=== PATIENT | male | born 1950 | race Caucasian/White ===

== ENCOUNTER 2019-03-28 07:31 | Day surgery (SDC) | payer MEDICARE, BC ==
[~2019-03-28] VITALS: Ht 175.3 cm; Wt 80.8 kg
[2019-03-28] VITALS (11 sets, daily range): BP systolic 99–116; BP diastolic 61–71
[~2019-03-28 07:31] MED LIST: BOSE125T PO; CHOL10002 PO; COU5T PO; EPIN0.1516 IM; O2; OMEG1CAP2 PO; SILD20TA PO; SPIR25TA5 PO
[2019-03-28] MEDS ORDERED: normal saline 1000ml 1,000 ML IV PRN (07:55)
[2019-03-28] MEDS ORDERED: albumin 25% 100mL bottle x 1 IV PRN (07:55)
== END 2019-03-28 11:15 | disposition home or self-care (01) ==
LOC: SSTAY O 07:31
PROVIDERS: ATTEND Radiology Vascular & Interventional Radiology
DX: R18.8 Other ascites (principal); I10 Essential (primary) hypertension; I27.20 Pulmonary hypertension, unspecified; I42.0 Dilated cardiomyopathy; Z98.890 Other specified postprocedural states; Z88.8 Allergy status to other drugs, medicaments and biological substances; Z79.899 Other long term (current) drug therapy
CPT/HCPCS: 36415; 49083; 85610; C1729; J7030

== ENCOUNTER 2019-04-11 06:32 | Day surgery (SDC) | payer MEDICARE, BC ==
[~2019-04-11] VITALS: Ht 175.3 cm; Wt 78.0 kg
[2019-04-11] MEDS ORDERED: normal saline 1000ml 1,000 ML IV PRN (07:05)
[2019-04-11] MEDS ORDERED: albumin 25% 100mL bottle x 1 IV PRN (07:05)
[2019-04-11 07:40] VITALS: BP 109/65
[2019-04-11 08:20] VITALS: BP 110/68
[2019-04-11 08:33] VITALS: BP 98/69
[2019-04-11 08:45] VITALS: BP 91/60
[2019-04-11 09:00] VITALS: BP 96/58
[2019-04-11 09:15] VITALS: BP 94/61
== END 2019-04-11 09:30 | disposition home or self-care (01) ==
LOC: SSTAY O 06:32
PROVIDERS: ATTEND Radiology Diagnostic Radiology
DX: R18.8 Other ascites (principal); I10 Essential (primary) hypertension; I42.0 Dilated cardiomyopathy; I27.20 Pulmonary hypertension, unspecified; Z98.890 Other specified postprocedural states; Z79.899 Other long term (current) drug therapy
CPT/HCPCS: 36415; 49083; 85610; C1729; J7030; P9047

== ENCOUNTER 2019-04-27 07:01 | Day surgery (SDC) | payer MEDICARE, BC ==
[~2019-04-27] VITALS: Ht 175.3 cm; Wt 74.1 kg
[2019-04-27] MEDS ORDERED: albumin 25% 100mL bottle x 1 IV PRN (07:25)
[2019-04-27] MEDS ORDERED: normal saline 1000ml 1,000 ML IV PRN (07:25)
[2019-04-27 08:00] VITALS: BP_SYST 91; BP_SYST 93; BP_DIAS 56; BP_DIAS 58
[2019-04-27 08:15] VITALS: BP 91/56
[2019-04-27 08:45] VITALS: BP 99/56
== END 2019-04-27 09:54 | disposition home or self-care (01) ==
LOC: SSTAY O 07:01
PROVIDERS: ATTEND Radiology Vascular & Interventional Radiology
DX: R18.8 Other ascites (principal); I27.20 Pulmonary hypertension, unspecified; N40.0 Benign prostatic hyperplasia without lower urinary tract symptoms; I10 Essential (primary) hypertension; Z98.890 Other specified postprocedural states; Z88.1 Allergy status to other antibiotic agents; Z91.030 Bee allergy status; Z79.899 Other long term (current) drug therapy; Z79.01 Long term (current) use of anticoagulants; Z82.49 Family history of ischemic heart disease and other diseases of the circulatory system
CPT/HCPCS: 49083; C1729; J7030; P9047

== ENCOUNTER 2019-05-09 06:01 | Day surgery (SDC) | payer MEDICARE, BC ==
[2019-05-09] VITALS (7 sets, daily range): BP systolic 88–100; BP diastolic 50–64
[~2019-05-09] VITALS: Ht 175.3 cm; Wt 72.3 kg
[2019-05-09] MEDS ORDERED: normal saline 1000ml 1,000 ML IV PRN (06:25)
[2019-05-09] MEDS ORDERED: albumin 25% 100mL bottle x 1 IV PRN (06:25)
[2019-05-09] MEDS ORDERED: CECLOR (06:30)
[2019-05-09] MEDS ORDERED: FURO-150 PO (06:30)
== END 2019-05-09 08:45 | disposition home or self-care (01) ==
LOC: SSTAY O 06:01
PROVIDERS: ATTEND Radiology Diagnostic Radiology
DX: R18.8 Other ascites (principal); N40.0 Benign prostatic hyperplasia without lower urinary tract symptoms; I10 Essential (primary) hypertension; Z98.890 Other specified postprocedural states; I27.20 Pulmonary hypertension, unspecified; Z79.01 Long term (current) use of anticoagulants; Z79.899 Other long term (current) drug therapy; Z88.1 Allergy status to other antibiotic agents; Z91.030 Bee allergy status; Z82.49 Family history of ischemic heart disease and other diseases of the circulatory system
CPT/HCPCS: 36415; 49083; 85610; C1729; J7030; P9047

== ENCOUNTER 2019-05-23 07:12 | Day surgery (SDC) | payer MEDICARE, BC ==
[~2019-05-23] VITALS: Ht 175.3 cm; Wt 69.5 kg
[2019-05-23] VITALS (7 sets, daily range): BP systolic 92–97; BP diastolic 53–57
[~2019-05-23 07:12] MED LIST changes: +CECLOR; +FURO-150 PO
[2019-05-23] MEDS ORDERED: albumin 25% 100mL bottle x 1 IV PRN (07:30)
[2019-05-23] MEDS ORDERED: normal saline 1000ml 1,000 ML IV PRN (07:30)
== END 2019-05-23 10:30 | disposition home or self-care (01) ==
LOC: SSTAY O 07:12
PROVIDERS: ATTEND Radiology Vascular & Interventional Radiology
DX: R18.8 Other ascites (principal); I42.0 Dilated cardiomyopathy; I27.20 Pulmonary hypertension, unspecified; Z79.899 Other long term (current) drug therapy
CPT/HCPCS: 49083; C1729; J7030; P9047

== ENCOUNTER 2019-06-06 08:02 | Day surgery (SDC) | payer MEDICARE, BC ==
[~2019-06-06] VITALS: Ht 175.3 cm; Wt 68.7 kg
[2019-06-06] VITALS (7 sets, daily range): BP systolic 88–98; BP diastolic 55–61
[~2019-06-06 08:02] MED LIST changes: -CECLOR
[2019-06-06] MEDS ORDERED: albumin 25% 100mL bottle x 1 IV PRN (08:25)
[2019-06-06] MEDS ORDERED: normal saline 1000ml 1,000 ML IV PRN (08:55)
== END 2019-06-06 11:15 | disposition home or self-care (01) ==
LOC: SSTAY O 08:02
PROVIDERS: ATTEND Radiology Vascular & Interventional Radiology
DX: R18.8 Other ascites (principal); I27.20 Pulmonary hypertension, unspecified; I42.8 Other cardiomyopathies; N40.0 Benign prostatic hyperplasia without lower urinary tract symptoms; I10 Essential (primary) hypertension; Z98.890 Other specified postprocedural states; Z88.1 Allergy status to other antibiotic agents; Z91.030 Bee allergy status; Z79.899 Other long term (current) drug therapy; Z79.01 Long term (current) use of anticoagulants; Z82.49 Family history of ischemic heart disease and other diseases of the circulatory system
CPT/HCPCS: 36415; 49083; 85610; C1729; J7030; P9047

== ENCOUNTER 2019-06-21 08:07 | Day surgery (SDC) | payer MEDICARE, BC ==
[2019-06-21] VITALS (8 sets, daily range): BP systolic 97–107; BP diastolic 61–73
[~2019-06-21] VITALS: Ht 170.2 cm; Wt 66.5 kg
[2019-06-21] MEDS ORDERED: normal saline 1000ml 1,000 ML IV PRN (08:30)
[2019-06-21] MEDS ORDERED: albumin (human) 25% 100ml IV 100 ML IV ONE (11:09)
== END 2019-06-21 11:40 | disposition home or self-care (01) ==
LOC: SSTAY O 08:07
PROVIDERS: ATTEND Radiology Diagnostic Radiology
DX: R18.8 Other ascites (principal); I27.20 Pulmonary hypertension, unspecified; I42.0 Dilated cardiomyopathy; I48.91 Unspecified atrial fibrillation; N40.0 Benign prostatic hyperplasia without lower urinary tract symptoms; I10 Essential (primary) hypertension; Z79.01 Long term (current) use of anticoagulants; Z98.890 Other specified postprocedural states; Z91.030 Bee allergy status; Z88.1 Allergy status to other antibiotic agents; Z79.899 Other long term (current) drug therapy; Z82.49 Family history of ischemic heart disease and other diseases of the circulatory system
CPT/HCPCS: 36415; 49083; 85610; C1729; J7030; P9047

== ENCOUNTER 2019-07-11 06:59 | Day surgery (SDC) | payer MEDICARE, BC ==
[~2019-07-11] VITALS: Ht 170.2 cm; Wt 65.7 kg
[2019-07-11] VITALS (8 sets, daily range): BP systolic 96–115; BP diastolic 63–75
[2019-07-11] MEDS ORDERED: normal saline 1000ml 1,000 ML IV PRN (07:20)
[2019-07-11] MEDS ORDERED: albumin 25% 100mL bottle x 1 IV PRN (07:20)
[2019-07-11] MEDS ORDERED: gelatin sponge, absorbable (Gelfoam 12-7MM) sponge TP ONE (09:05)
== END 2019-07-11 14:15 | disposition home or self-care (01) ==
LOC: SSTAY O 06:59
PROVIDERS: ATTEND Radiology Vascular & Interventional Radiology
DX: R18.8 Other ascites (principal); I27.20 Pulmonary hypertension, unspecified; I48.91 Unspecified atrial fibrillation; I10 Essential (primary) hypertension; N40.0 Benign prostatic hyperplasia without lower urinary tract symptoms; Z98.890 Other specified postprocedural states; Z79.899 Other long term (current) drug therapy; Z79.01 Long term (current) use of anticoagulants; Z88.1 Allergy status to other antibiotic agents; Z91.030 Bee allergy status
CPT/HCPCS: 36415; 49083; 85610; C1729; J7030; P9047

== ENCOUNTER 2019-07-31 07:02 | Day surgery (SDC) | payer MEDICARE, BC ==
[~2019-07-31] VITALS: Ht 170.2 cm; Wt 63.7 kg
[~2019-07-31 07:02] MED LIST changes: -BOSE125T PO
[2019-07-31 07:18] VITALS: BP 92/53
[2019-07-31] MEDS ORDERED: normal saline 1000ml 1,000 ML IV PRN (07:25)
[2019-07-31] MEDS ORDERED: albumin 25% 100mL bottle x 1 IV PRN (07:25)
[2019-07-31 08:55] VITALS: BP 103/62
[2019-07-31 09:10] VITALS: BP 93/56
[2019-07-31 09:25] VITALS: BP 109/50
[2019-07-31 09:30] VITALS: BP 109/52
[2019-07-31 09:45] VITALS: BP 103/52
== END 2019-07-31 09:45 | disposition home or self-care (01) ==
LOC: SSTAY O 07:02
PROVIDERS: ATTEND Radiology Vascular & Interventional Radiology
DX: R18.8 Other ascites (principal); I48.91 Unspecified atrial fibrillation; I27.9 Pulmonary heart disease, unspecified; N40.0 Benign prostatic hyperplasia without lower urinary tract symptoms; I10 Essential (primary) hypertension; Z98.890 Other specified postprocedural states; Z79.01 Long term (current) use of anticoagulants; Z91.030 Bee allergy status; Z88.1 Allergy status to other antibiotic agents; Z79.899 Other long term (current) drug therapy; Z82.49 Family history of ischemic heart disease and other diseases of the circulatory system
CPT/HCPCS: 36415; 49083; 85610; C1729; J7030

== ENCOUNTER 2019-08-13 10:09 | Inpatient (IN) | payer MEDICARE, BC ==
[2019-08-13] VITALS (7 sets, daily range): BP systolic 103–114; BP diastolic 63–69
[~2019-08-13] VITALS: Ht 170.2 cm; Wt 62.3 kg
--- NOTE | 2019-08-13 10:15 | NUR ---
In house and paged for level 1 stroke. Onset 0900 this morning. Spouse states last known well was moments before. Speech became so slurred spouse stated I could hardly understand him. She also noted a right facial droop. Pt experienced generalized weakness, though no one sided weakness. No difficulty with thought comprehension. Currently pt exhibits severe dysarthria which waxes and wanes. Noticeable right facial droop and pts tongue deviates toward the right. Sensation is intact, aphasia is mild. 1029 sound check completed with SOC 1045 2nd page to SOC 1055 SOC logged on and tele neuro exam completed at 1105. 1105 pt ineligible for TPA as INR is 2.1. Pt has been off his Wafarin since last Wed. with pending paracentesis, which he under goes twich per month here on outpatient basis.
--- NOTE | 2019-08-13 10:20 | NUR ---
Stroke nurseJoan, at bedside to assess pt.
--- NOTE | 2019-08-13 10:36 | NUR ---
Pt returned from CT with ANABELLA Londono. Joan Stroke RN at bedside.
[2019-08-13 10:50] LABS: BASOPHILS # (AUTO) 0.1 X10'3 (0-0.2); BASOPHILS % (AUTO) 1.3 % (0-1); EOSINOPHILS # (AUTO) 0.1 X10'3 (0-0.9); EOSINOPHILS % (AUTO) 1.9 % (0-6); HEMATOCRIT 42.4 % (42.0-52.0); HEMOGLOBIN 13.5 g/dl (14.0-17.9); LYMPHOCYTES # (AUTO) 1.6 X10'3 (1.1-4.8); LYMPHOCYTES % (AUTO) 20.6 % (21-51); MEAN CORPUSCULAR HEMOGLOBIN 26.4 PG (27.0-31.0); MEAN CORPUSCULAR VOLUME 82.6 FL (78-98); MEAN PLATELET VOLUME 6.8 FL (7.4-10.4); MONOCYTES # (AUTO) 0.6 X10'3 (0-0.9); MONOCYTES % (AUTO) 7.2 % (2-12); NEUTROPHILS # (AUTO) 5.3 X10'3 (1.8-7.7); PLATELET COUNT 249 X10'3 (140-440); RED BLOOD COUNT 5.13 X10'6 (4.70-6.10); RED CELL DISTRIBUTION WIDTH 18.3 % (11.5-14.5); WHITE BLOOD COUNT 7.7 X10'3 (4.5-11.0)
[2019-08-13 11:01] LABS: PARTIAL THROMBOPLASTIN TIME 32 SECONDS (22-32)
[2019-08-13 11:03] LABS: ALANINE AMINOTRANSFERASE 9 U/L (12-78); ALBUMIN 2.8 G/DL (3.4-5.0); ALBUMIN/GLOBULIN RATIO 0.8 (1.1-1.5); ALKALINE PHOSPHATASE 173 IU/L (46-116); ANION GAP 9 (8-16); ASPARTATE AMINO TRANSFERASE 22 U/L (10-37); BLOOD UREA NITROGEN 18 MG/DL (7-18); BUN/CREATININE RATIO 17.6 (5.4-32.0); CALCIUM 8.4 MG/DL (8.5-10.1); CHLORIDE 101 MMOL/L (99-107); CREATININE 1.02 MG/DL (0.60-1.10); GLUCOSE 102 MG/DL (70-104); POTASSIUM 3.8 MMOL/L (3.5-5.1); SODIUM 138 MMOL/L (135-145); TOTAL CARBON DIOXIDE 28.1 MMOL/L (24-32); TOTAL PROTEIN 6.2 G/DL (6.4-8.2); eGFR 73 ML/MIN
[2019-08-13] MEDS ORDERED: aspirin 325mg tablet PO ONE (11:15)
--- NOTE | 2019-08-13 11:20 | NUR ---
ANABELLA Franco remains at bedside and consulting with neuro tele. Family at bedside. TPA cannot be started due to INR results.
[2019-08-13] MEDS ORDERED: iohexol 350MG/ML 100ml bottle IV ONE ×2 (11:31→12:10)
--- NOTE | 2019-08-13 11:42 | NUR ---
Pt to CT for CTA
--- NOTE | 2019-08-13 12:04 | NUR ---
back from ct and xray
[2019-08-13] MEDS ORDERED: normal saline 1000ml 1,000 ML IV ONE (12:05)
--- NOTE | 2019-08-13 12:41 | NUR ---
Pt to CT
[2019-08-13] MEDS ORDERED: heparin 25,000 UNIT/250ml bag 250 ML IV SCH (12:58)
[2019-08-13 13:11] LABS: ABG BASE EXCESS -1.6 mmol/L (-2.0-3.0); ABG HCO3 22.5 mmol/L (22.0-26.0); ABG OXYGEN SATURATION 81.6 % (95-98); ABG PCO2 (T) 36.3 mmHg (35.0-45.0); ABG PO2 (T) 47.7 mmHg (83-108); ALLEN'S TEST Positive; FCOHb 1.2 % (0.5-1.5); FLOW 5 L/min; FMetHb 0.2 % (0.3-1.12); FO2Hb 80.5 % (94-100); TOTAL HEMOGLOBIN 13.8 G/dl (14.0-17.9)
--- NOTE | 2019-08-13 13:46 | NUR ---
echo being done
--- NOTE | 2019-08-13 13:47 | NUR ---
1115 per erin hong stroke nurse. stroke protocol on hold for now. but gely available if needed.
[2019-08-13] MEDS ORDERED: FURO-150 PO (14:09)
[2019-08-13] MEDS ORDERED: acetaminophen 325mg tablet PO PRN ×2 (14:10)
[2019-08-13] MEDS ORDERED: acetaminophen 650mg rectal suppository RC PRN (14:10)
[2019-08-13] MEDS ORDERED: potassium Cl 20 mEq SR tablet PO PRN ×2 (14:10)
[2019-08-13] MEDS ORDERED: normal saline 1000ml 1,000 ML IV SCH (14:10)
[2019-08-13] MEDS ORDERED: morphine 2 MG/ML inj. syringe IV PRN (14:10)
[2019-08-13] MEDS ORDERED: ondansetron/PF 4mg/2ml inj IV PRN (14:10)
[2019-08-13] MEDS ORDERED: albuterol 2.5 MG/3 ML nebule NEB PRN (14:10)
[2019-08-13] MEDS: K, MAG and/or Phos replacement - Verify level? MC SCH (14:10)
--- NOTE | 2019-08-13 15:58 | NUR ---
Patient in room CICU 2009. I have received report from ANABELLA Londono and had the opportunity to ask questions and assume patient care.
[2019-08-13] MEDS: ipratropium/albuterol 3ml nebule NEB SCH ×3 (16:17→23:47)
--- NOTE | 2019-08-13 18:15 | NUR ---
Patient in room CICU 2009. I have received report from Vin KYLE and had the opportunity to ask questions and assume patient care. Patient resting tin bed on 8LNC with spo2 at 87%, per provider orders keep spo2 greater than 86%, no signs or symptoms of distress, no complaints of pain. Call light within reach. Will continue to monitor.
--- NOTE | 2019-08-13 18:25 | NUR ---
[facility] I have received report from Vin KYLE and had the opportunity to ask questions and assume patient care. Patient was on room air and saturating at 98%. Vital signs were stable. Levophed drip infusing through central line per MD orders, refer to IV spreadsheet for titration. Patient calm and playing games on cell phone. Addendum: 08/14/19 at 0438 by Hilary EARLY disregard above note. Entered in on wrong patient
--- NOTE | 2019-08-13 20:35 | NUR ---
Spoke with Rafaela May NP regarding patients order for Phillips, patient requests no Phillips catheter at this time and is voiding in urinal without issue. Per Lalo ok to not place Phillips at this time.
[2019-08-13] MEDS: sildenafil citrate 20mg tablet PO SCH (20:44)
[2019-08-13] MEDS: famotidine 20mg tablet PO SCH (20:44)
[2019-08-13] MEDS: warfarin 5mg tablet PO SCH (20:44)
[2019-08-14] VITALS (22 sets, daily range): BP systolic 98–141; BP diastolic 55–82
[2019-08-14] MEDS: ipratropium/albuterol 3ml nebule NEB SCH ×6 (03:30→22:49)
[2019-08-14 05:17] LABS: BASOPHILS # (AUTO) 0.1 X10'3 (0-0.2); BASOPHILS % (AUTO) 1.3 % (0-1); EOSINOPHILS # (AUTO) 0.2 X10'3 (0-0.9); EOSINOPHILS % (AUTO) 1.9 % (0-6); HEMATOCRIT 40.6 % (42.0-52.0); LYMPHOCYTES # (AUTO) 1.6 X10'3 (1.1-4.8); LYMPHOCYTES % (AUTO) 18.8 % (21-51); MEAN CORPUSCULAR HEMOGLOBIN 26.4 PG (27.0-31.0); MEAN CORPUSCULAR VOLUME 82.4 FL (78-98); MEAN PLATELET VOLUME 6.7 FL (7.4-10.4); MONOCYTES # (AUTO) 0.6 X10'3 (0-0.9); MONOCYTES % (AUTO) 7.3 % (2-12); NEUTROPHILS % (AUTO) 70.7 % (42-75); PLATELET COUNT 228 X10'3 (140-440); RED BLOOD COUNT 4.93 X10'6 (4.70-6.10); RED CELL DISTRIBUTION WIDTH 18.5 % (11.5-14.5); WHITE BLOOD COUNT 8.4 X10'3 (4.5-11.0)
[2019-08-14 05:39] LABS: ALANINE AMINOTRANSFERASE 8 U/L (12-78); ALBUMIN 2.4 G/DL (3.4-5.0); ALBUMIN/GLOBULIN RATIO 0.8 (1.1-1.5); ALKALINE PHOSPHATASE 136 IU/L (46-116); ANION GAP 13 (8-16); ASPARTATE AMINO TRANSFERASE 16 U/L (10-37); BLOOD UREA NITROGEN 15 MG/DL (7-18); BUN/CREATININE RATIO 16.3 (5.4-32.0); CALCIUM 8.1 MG/DL (8.5-10.1); CHLORIDE 102 MMOL/L (99-107); CHOL/HDL RATIO 3.4 (0.00-4.99); CHOLESTEROL 96 MG/DL (0-200); CREATININE 0.92 MG/DL (0.60-1.10); GLUCOSE 88 MG/DL (70-104); HDL CHOLESTEROL 28 MG/DL (35-60); LDL CHOLESTEROL 63 MG/DL (50-100); MAGNESIUM 1.7 MG/DL (1.5-2.4); POTASSIUM 3.9 MMOL/L (3.5-5.1); SODIUM 138 MMOL/L (135-145); TOTAL CARBON DIOXIDE 23.1 MMOL/L (24-32); TOTAL PROTEIN 5.6 G/DL (6.4-8.2); TRIGLYCERIDES 48 MG/DL (20-135); eGFR 82 ML/MIN
--- NOTE | 2019-08-14 06:34 | NUR ---
Problems reprioritized. Patient report given, questions answered & plan of care reviewed with Edil KYLE.
--- NOTE | 2019-08-14 06:34 | NUR ---
Student documentation: I have reviewed and agree with all interventions, assessments performed and documented by Hilary. Student Medication Administration: For this medication-pass time frame, all medication were reviewed, dispensed, administered and documented per hospital policy by Hilary.
[2019-08-14] MEDS: famotidine 20mg tablet PO SCH ×2 (07:09→20:37)
[2019-08-14] MEDS: sildenafil citrate 20mg tablet PO SCH ×3 (07:09→21:27)
[2019-08-14] MEDS: OMEGA-3/DHA/EPA/FISH OIL 1 EACH CAPSULE.DR PO SCH (07:10)
[2019-08-14] MEDS: vitamin D (cholecalciferol) 1,000 unit tablet PO SCH (08:00)
[2019-08-14] MEDS: K, MAG and/or Phos replacement - Verify level? MC SCH (08:00)
--- NOTE | 2019-08-14 10:02 | NUR ---
Brief visit. Pt is irritable and offers short somewhat abrupt answers to questions. Is uncomforable with large abdomen. Feels more "short of breath." Abdomen distended though compressions easily. Pt describes it difficult to sit upright due to pressure. Describes feeling "hungry" due to inability to eat much secondary to abdominal size. Stroke symptoms have mostly resolved. Slurring and mild aphasia have resolved. Still has faint flattening of right nasolabial fold and tongue when protruded goes toward the right. Dr Lugo has canceled further stroke work up. Restarted Warfarin last noc.
--- NOTE | 2019-08-14 10:53 | NUR ---
Pt with A1c 7.0. Pt currently documented as A/O x 1, DM education not warranted at this time. Will f/u with DM education once pt more stable. Addendum: 08/14/19 at [address] Amended: Links added.
--- NOTE | 2019-08-14 13:00 | NUR ---
Patient has been oriented X3 during this shift. irritable and at times impulsive. Education on disease process, current interventions, and safety concerns provided throughout shift. Patient makes unsafe mobile attempts and removes self from telemetry and bedside monitoring. Patient also states that high flow oxygen is uncomfortable and removes nasal cannula at times. Education on purpose of nasal cannula and need for high flow given. RT and RN collaboration on other oxygen delivery methods for optimum comfort completed at bedside with patient input, however, patient declines all other methods. When oxygen is removed, patient desaturates into low 80s and high 70s. athletics teacher and MD Farley notified of o2 concerns and patient behaviors. Each at bedside with patient.
[2019-08-14] MEDS ORDERED: enoxaparin 60mg/0.6ml syringe SUBCUT ONE (14:10)
[2019-08-14] MEDS: enoxaparin 60mg/0.6ml syringe SUBCUT SCH ×2 (14:42→20:42)
--- NOTE | 2019-08-14 19:17 | NUR ---
Patient in room CICU 2009. I have received report from Edil KYLE and had the opportunity to ask questions and assume patient care. Patient in bed eating, vitals all stable, will continue to monitor.
[2019-08-14] MEDS: furosemide 20MG tablet PO SCH (20:37)
[2019-08-14] MEDS: spironolactone 25 MG tablet PO SCH (20:41)
[2019-08-14] MEDS: warfarin 5mg tablet PO SCH (21:27)
--- NOTE | 2019-08-14 23:11 | NUR ---
Patient unhooked himself from all monitors and removed his O2. He pulled out the toilet under the sink to have a BM. We (myself and Swathi KYLE) went in and told him he cannot use that toilet and he cannot remove himself from the monitors. He snapped back at us, telling us we had no business in his room without his permission and that he was just going to "shit the bed." Patient was placed back on the monitors and given an explaination as to why he needs to be continuously monitored. He yelled at us to get out.
[2019-08-15] VITALS (25 sets, daily range): BP systolic 101–134; BP diastolic 53–79
[2019-08-15] MEDS: ipratropium/albuterol 3ml nebule NEB SCH ×4 (04:00→15:04)
[2019-08-15 04:32] LABS: BASOPHILS # (AUTO) 0.1 X10'3 (0-0.2); BASOPHILS % (AUTO) 0.9 % (0-1); EOSINOPHILS # (AUTO) 0.2 X10'3 (0-0.9); EOSINOPHILS % (AUTO) 2.6 % (0-6); HEMOGLOBIN 13.3 g/dl (14.0-17.9); LYMPHOCYTES # (AUTO) 1.3 X10'3 (1.1-4.8); LYMPHOCYTES % (AUTO) 17.2 % (21-51); MEAN CORPUSCULAR HEMOGLOBIN 26.4 PG (27.0-31.0); MEAN CORPUSCULAR HGB CONC 31.6 g/dL (33.0-36.5); MEAN CORPUSCULAR VOLUME 83.5 FL (78-98); MEAN PLATELET VOLUME 6.9 FL (7.4-10.4); MONOCYTES # (AUTO) 0.7 X10'3 (0-0.9); MONOCYTES % (AUTO) 8.6 % (2-12); NEUTROPHILS # (AUTO) 5.5 X10'3 (1.8-7.7); NEUTROPHILS % (AUTO) 70.7 % (42-75); PLATELET COUNT 222 X10'3 (140-440); RED BLOOD COUNT 5.03 X10'6 (4.70-6.10); RED CELL DISTRIBUTION WIDTH 18.1 % (11.5-14.5); WHITE BLOOD COUNT 7.8 X10'3 (4.5-11.0)
[2019-08-15 04:50] LABS: ALANINE AMINOTRANSFERASE 9 U/L (12-78); ALBUMIN 2.6 G/DL (3.4-5.0); ALBUMIN/GLOBULIN RATIO 0.8 (1.1-1.5); ALKALINE PHOSPHATASE 133 IU/L (46-116); ANION GAP 9 (8-16); ASPARTATE AMINO TRANSFERASE 20 U/L (10-37); BILIRUBIN,TOTAL 1.4 MG/DL (0.1-1.0); BLOOD UREA NITROGEN 14 MG/DL (7-18); BUN/CREATININE RATIO 13.5 (5.4-32.0); CALCIUM 8.5 MG/DL (8.5-10.1); CHLORIDE 102 MMOL/L (99-107); CREATININE 1.04 MG/DL (0.60-1.10); GLUCOSE 82 MG/DL (70-104); MAGNESIUM 1.8 MG/DL (1.5-2.4); PHOSPHORUS 3.6 MG/DL (2.3-4.5); POTASSIUM 4.1 MMOL/L (3.5-5.1); SODIUM 135 MMOL/L (135-145); TOTAL CARBON DIOXIDE 24.3 MMOL/L (24-32); TOTAL PROTEIN 5.9 G/DL (6.4-8.2); eGFR 71 ML/MIN
--- NOTE | 2019-08-15 05:22 | NUR ---
Patient got out of bed again to use the toilet. I came into the room to assist him and he told me to get out. I moved the commode towards him so he wouldn't have to walk across the room but he got angry and pushed the commode against the wall. I tried to explain that his safety was my concern and I didn't want him to fall. He yelled "What if I just walk out that door? Are you gonna stop me from doing that?" I told him its his choice on whether he stays here or not but while he is under my care he needs to call me when he gets up and he needs to stay connected to his monitor. He sat down on the commode, I closed the curtain and when I walked away he disconnected his judicial registrar. I stepped back into the room to reconnect it and he called me a pervert. I said "I'm sorry to bother you but, once again, we need you to be continuously monitored." He yelled at me again, saying it wasn't him that disconnected it and that I'm a liar. I left the room and he yelled for me, he needed a way to wash his hands. I brought him a package of wipes and he shoved the overbed table into me. I said "excuse me, you are pushing the table into me." He looked me directly in the eyes and did it again. At that time Swathi KYLE came in the room, I told her he just pushed the table into me and he said "why don't you tell the truth. You're a liar." After patient was back in bed I rolled his table back to his side, he stuck his foot up against the table and yelled "Ouch you hit me!!" He looked me in the eye and said "that's how it works right?" I left the room at that point and let charge nurse Osei KYLE handle the situation.
--- NOTE | 2019-08-15 06:30 | NUR ---
Patient in room CICU 2009. I have received report from anne and had the opportunity to ask questions and assume patient care.
--- NOTE | 2019-08-15 06:34 | NUR ---
Problems reprioritized. Patient report given, questions answered & plan of care reviewed with Lupe KYLE.
[2019-08-15] MEDS: K, MAG and/or Phos replacement - Verify level? MC SCH (06:43)
--- NOTE | 2019-08-15 08:00 | NUR ---
pt appearing angry about everything being done to hime- ie assessment, activity etc. reassured. at bs- pt became more relaxed and apologized for negative behavior. sitter at bs til in. consent for pa catheter
[2019-08-15] MEDS: sildenafil citrate 20mg tablet PO SCH ×3 (08:36→20:01)
[2019-08-15] MEDS: OMEGA-3/DHA/EPA/FISH OIL 1 EACH CAPSULE.DR PO SCH (08:36)
[2019-08-15] MEDS: spironolactone 25 MG tablet PO SCH ×2 (08:36→20:01)
[2019-08-15] MEDS: vitamin D (cholecalciferol) 1,000 unit tablet PO SCH (08:37)
[2019-08-15] MEDS: famotidine 20mg tablet PO SCH ×2 (08:37→20:01)
[2019-08-15] MEDS: furosemide 20MG tablet PO SCH ×2 (08:37→20:01)
[2019-08-15] MEDS ORDERED: midazolam 2 mg/2 ml injection ONE (10:36)
[2019-08-15] MEDS ORDERED: midazolam 2 mg/2 ml injection IV ONE (10:50)
--- NOTE | 2019-08-15 11:15 | NUR ---
DM/Malnutrition Consults: Pt admit for r/o stroke. Hx multiple admits for ascites w/ cirrhosis and liver failure r/t heart failure. Pending paracentesis per MD note. Pt has no edema/wounds, normal strength, and no significant wt loss hx from prior admits. PO 75-100% dinner last night increasing from initial PO first 2 days of admit. At this time pt does not meet malnutrition criteria. A1C 7.0; pt has no prior hx DM and reports no knowledge of DM or any medications for GLU. RD notified real estate attorney at round given no DM hx. RD d/w RN pt will need official DM DX by MD prior to DM education. Pt is agitated, passive, and threatened to leave AMA last night per RN; was agitated and short during RD visit. Will monitor for MD input on DM and official DX prior to d/c. Addendum: 08/15/19 at [address] Amended: Links added.
[2019-08-15] MEDS ORDERED: polyethylene glycol 3350 17gm powd pack PO PRN (14:10)
[2019-08-15] MEDS ORDERED: bisacodyl 10mg suppository rectal RC PRN (14:10)
--- NOTE | 2019-08-15 17:03 | NUR ---
pt in good spirits most of day with and then daughter at bs. aware of ci of 1.5. jonathan ruggiero.
--- NOTE | 2019-08-15 17:51 | NUR ---
update to dr garcia re sats of 82 to 88 on 11l hiflow- wears 2 to 3 liters by concentrator at home with sats of 87%
--- NOTE | 2019-08-15 18:35 | NUR ---
Patient in room CICU 2009. I have received report from Sruthi, and had the opportunity to ask questions and assume patient care.
[2019-08-15] MEDS: warfarin 5mg tablet PO SCH (20:03)
[2019-08-16] VITALS (16 sets, daily range): BP systolic 91–124; BP diastolic 48–78
[2019-08-16 04:41] LABS: BASOPHILS # (AUTO) 0.1 X10'3 (0-0.2); BASOPHILS % (AUTO) 1.1 % (0-1); EOSINOPHILS # (AUTO) 0.1 X10'3 (0-0.9); EOSINOPHILS % (AUTO) 1.8 % (0-6); HEMATOCRIT 44.6 % (42.0-52.0); HEMOGLOBIN 14.3 g/dl (14.0-17.9); LYMPHOCYTES # (AUTO) 1.5 X10'3 (1.1-4.8); LYMPHOCYTES % (AUTO) 18.2 % (21-51); MEAN CORPUSCULAR HEMOGLOBIN 26.4 PG (27.0-31.0); MEAN CORPUSCULAR HGB CONC 32.2 g/dL (33.0-36.5); MEAN CORPUSCULAR VOLUME 82.2 FL (78-98); MEAN PLATELET VOLUME 6.9 FL (7.4-10.4); MONOCYTES # (AUTO) 0.7 X10'3 (0-0.9); MONOCYTES % (AUTO) 8.4 % (2-12); NEUTROPHILS # (AUTO) 5.7 X10'3 (1.8-7.7); NEUTROPHILS % (AUTO) 70.5 % (42-75); PLATELET COUNT 238 X10'3 (140-440); RED BLOOD COUNT 5.42 X10'6 (4.70-6.10); RED CELL DISTRIBUTION WIDTH 18.5 % (11.5-14.5)
[2019-08-16 04:53] LABS: ALANINE AMINOTRANSFERASE 9 U/L (12-78); ALBUMIN 2.8 G/DL (3.4-5.0); ALBUMIN/GLOBULIN RATIO 0.8 (1.1-1.5); ALKALINE PHOSPHATASE 138 IU/L (46-116); ANION GAP 10 (8-16); ASPARTATE AMINO TRANSFERASE 19 U/L (10-37); BILIRUBIN,TOTAL 1.2 MG/DL (0.1-1.0); BLOOD UREA NITROGEN 14 MG/DL (7-18); BUN/CREATININE RATIO 13.3 (5.4-32.0); CALCIUM 8.9 MG/DL (8.5-10.1); CHLORIDE 100 MMOL/L (99-107); CREATININE 1.05 MG/DL (0.60-1.10); GLUCOSE 91 MG/DL (70-104); MAGNESIUM 1.8 MG/DL (1.5-2.4); PHOSPHORUS 3.5 MG/DL (2.3-4.5); POTASSIUM 4.2 MMOL/L (3.5-5.1); SODIUM 135 MMOL/L (135-145); TOTAL CARBON DIOXIDE 24.8 MMOL/L (24-32); TOTAL PROTEIN 6.2 G/DL (6.4-8.2); eGFR 70 ML/MIN
--- NOTE | 2019-08-16 06:16 | NUR ---
Problems reprioritized. Patient report given Kip, questions answered & plan of care reviewed with .
[2019-08-16] MEDS: OMEGA-3/DHA/EPA/FISH OIL 1 EACH CAPSULE.DR PO SCH (07:07)
[2019-08-16] MEDS: sildenafil citrate 20mg tablet PO SCH ×2 (07:07→12:37)
[2019-08-16] MEDS: vitamin D (cholecalciferol) 1,000 unit tablet PO SCH (07:07)
[2019-08-16] MEDS: spironolactone 25 MG tablet PO SCH (07:07)
[2019-08-16] MEDS: furosemide 20MG tablet PO SCH (07:08)
[2019-08-16] MEDS: famotidine 20mg tablet PO SCH (07:08)
[2019-08-16] MEDS: K, MAG and/or Phos replacement - Verify level? MC SCH (08:00)
[2019-08-16] MEDS ORDERED: albumin (human) 25% 100 ML IV solution IV ONE (12:15)
--- NOTE | 2019-08-16 13:20 | NUR ---
at the bedside, 4600ml fluid drawn from abdomen w/o any complications, pt feels comfortable.
--- NOTE | 2019-08-16 15:35 | NUR ---
Pt discharged to home at 1515, accompanied pt upon discharge.
[2019-08-17] MEDS ORDERED: OXYGEN NASALCANN (02:17)
== END 2019-08-16 15:37 | disposition home or self-care (01) | DRG 286 ==
LOC: ER 10:09 → ED HOLD 14:10 → CICU 2S 15:06
PROVIDERS: ADMIT Internal Medicine Critical Care Medicine; ATTEND Internal Medicine Critical Care Medicine
PROC: B3251ZZ Computerized Tomography (CT Scan) of Bilateral Common Carotid Arteries using Low Osmolar Contrast (ICD-10-PCS; 2019-08-13)
PROC: B3281ZZ Computerized Tomography (CT Scan) of Bilateral Internal Carotid Arteries using Low Osmolar Contrast (ICD-10-PCS; 2019-08-13)
PROC: B32T1ZZ Computerized Tomography (CT Scan) of Left Pulmonary Artery using Low Osmolar Contrast (ICD-10-PCS; 2019-08-13)
PROC: B3201ZZ Computerized Tomography (CT Scan) of Thoracic Aorta using Low Osmolar Contrast (ICD-10-PCS; 2019-08-13)
PROC: B32S1ZZ Computerized Tomography (CT Scan) of Right Pulmonary Artery using Low Osmolar Contrast (ICD-10-PCS; 2019-08-13)
PROC: 4A023N6 Measurement of Cardiac Sampling and Pressure, Right Heart, Percutaneous Approach (ICD-10-PCS; principal; 2019-08-15)
PROC: B2111ZZ Fluoroscopy of Multiple Coronary Arteries using Low Osmolar Contrast (ICD-10-PCS; 2019-08-15)
DX: I11.0 Hypertensive heart disease with heart failure (principal); J96.01 Acute respiratory failure with hypoxia; R18.8 Other ascites; I27.24 Chronic thromboembolic pulmonary hypertension; K72.90 Hepatic failure, unspecified without coma; I48.91 Unspecified atrial fibrillation; I50.810 Right heart failure, unspecified; Z79.01 Long term (current) use of anticoagulants; Z88.8 Allergy status to other drugs, medicaments and biological substances; Z79.899 Other long term (current) drug therapy
CPT/HCPCS: 36415; 36600; 70450; 70496; 70498; 71045; 71275; 80053; 80061; 82803; 82948; 83036; 83735; 83880; 84100; 84484; 85018; 85025; 85610; 85730; 86885; 86900; 86901; 87081; 92508; 92616; 93005; 93306; 94640; 94760; 96360; 97116; 97161; 99285; G0378; J1644; J1650; J2250; P9047; Q9967

== ENCOUNTER 2019-08-17 00:31 | Inpatient (IN) | payer MEDICARE, BC ==
[~2019-08-17] VITALS: Ht 170.2 cm; Wt 63.3 kg
[2019-08-17] VITALS (23 sets, daily range): BP systolic 78–114; BP diastolic 51–74
[~2019-08-17 00:31] MED LIST changes: -EPIN0.1516 IM
[2019-08-17] MEDS ORDERED: fentaNYL/PF 50MCG/1 ML 2ML syringe IM ONE (00:55)
[2019-08-17] MEDS ORDERED: ondansetron 4mg rapidly disintigrating tab PO ONE (00:55)
[2019-08-17] MEDS ORDERED: morphine 4 MG/ML inj SYRINge IV ONE (01:00)
[2019-08-17] MEDS ORDERED: normal saline 1000ml 1,000 ML IV ONE (01:00)
[2019-08-17] MEDS ORDERED: etomidate 2mg/ml inj. IV ONE ×2 (01:05→01:35)
--- NOTE | 2019-08-17 01:21 | NUR ---
RECEIVED VERBAL ORDER FROM SRIDHAR HOOVER FOR ADDITIONAL ETOMIDATE IV 5MG X1 DOSE NOW. ORDER RECEIVED AND INPUTTED. ADMINSTERED
--- NOTE | 2019-08-17 01:25 | NUR ---
JACQUIE WALLER AND LOLIS AWARE OF PT FLUXUATING O2 STATUS. STATED THIS IS CHRONIC PROBLEM FOR PT. NO NEW ORDERS. SURGEON MAURICIO ENTERED ROOM TO ASSESS PT AND WAS ALSO MADE AWARE OF PT O2 FLUXUATING FROM 72%-87%. NO NEW ORDERS. WILL CONTINUE TO MONITOR PT.
[2019-08-17 01:31] LABS: ALANINE AMINOTRANSFERASE 8 U/L (12-78); ALBUMIN 3.7 G/DL (3.4-5.0); ALBUMIN/GLOBULIN RATIO 1.1 (1.1-1.5); ALKALINE PHOSPHATASE 136 IU/L (46-116); ANION GAP 12 (8-16); ASPARTATE AMINO TRANSFERASE 20 U/L (10-37); BILIRUBIN,TOTAL 1.4 MG/DL (0.1-1.0); BLOOD UREA NITROGEN 15 MG/DL (7-18); BUN/CREATININE RATIO 12.1 (5.4-32.0); CALCIUM 9.2 MG/DL (8.5-10.1); CHLORIDE 98 MMOL/L (99-107); CREATININE 1.24 MG/DL (0.60-1.10); GLUCOSE 177 MG/DL (70-104); POTASSIUM 4.3 MMOL/L (3.5-5.1); SODIUM 135 MMOL/L (135-145); TOTAL CARBON DIOXIDE 25.2 MMOL/L (24-32); eGFR 58 ML/MIN
[2019-08-17 01:36] LABS: BASOPHILS # (AUTO) 0.1 X10'3 (0-0.2); BASOPHILS % (AUTO) 1.1 % (0-1); EOSINOPHILS # (AUTO) 0.1 X10'3 (0-0.9); EOSINOPHILS % (AUTO) 0.9 % (0-6); HEMOGLOBIN 14.3 g/dl (14.0-17.9); LYMPHOCYTES # (AUTO) 1.2 X10'3 (1.1-4.8); LYMPHOCYTES % (AUTO) 12.6 % (21-51); MEAN CORPUSCULAR HEMOGLOBIN 26.7 PG (27.0-31.0); MEAN CORPUSCULAR HGB CONC 32.4 g/dL (33.0-36.5); MEAN CORPUSCULAR VOLUME 82.4 FL (78-98); MEAN PLATELET VOLUME 7.2 FL (7.4-10.4); MONOCYTES # (AUTO) 0.6 X10'3 (0-0.9); NEUTROPHILS # (AUTO) 7.4 X10'3 (1.8-7.7); NEUTROPHILS % (AUTO) 79.4 % (42-75); PLATELET COUNT 220 X10'3 (140-440); RED BLOOD COUNT 5.34 X10'6 (4.70-6.10); RED CELL DISTRIBUTION WIDTH 18.3 % (11.5-14.5); WHITE BLOOD COUNT 9.3 X10'3 (4.5-11.0)
[2019-08-17] MEDS ORDERED: iohexol 300mg/ml 100ml inj. ONE (01:41)
[2019-08-17] MEDS ORDERED: potassium Cl 20 mEq SR tablet PO PRN ×2 (02:10)
[2019-08-17] MEDS ORDERED: mag hydrox/Alum hydrox/simeth 30ml oral suspension PO PRN (02:10)
[2019-08-17] MEDS ORDERED: magnesium hydroxide 30ml (MOM) UD suspension PO PRN (02:10)
[2019-08-17] MEDS ORDERED: magnesium 4gm in 100ml NS 100 ML IV PRN (02:10)
[2019-08-17] MEDS ORDERED: magnesium 2GM in 50ml NS 50 ML IV PRN (02:10)
[2019-08-17] MEDS ORDERED: potassium CL 10mEq/100ml bag 100 ML IV PRN ×2 (02:10)
[2019-08-17] MEDS ORDERED: ondansetron/PF 4mg/2ml inj IV PRN ×2 (02:10→03:20)
[2019-08-17] MEDS ORDERED: morphine 2 MG/ML inj. syringe IV PRN ×2 (02:10)
[2019-08-17] MEDS ORDERED: HYDROcodone/acetaminophen 5mg/325mg tablet PO PRN ×2 (02:10→04:20)
[2019-08-17] MEDS ORDERED: acetaminophen 325mg tablet PO PRN ×2 (02:10)
[2019-08-17] MEDS ORDERED: magnesium Cl slow-release 64mg tablet PO PRN (02:10)
[2019-08-17] MEDS ORDERED: OXYGEN NASALCANN (02:17)
[2019-08-17] MEDS ORDERED: HUMAN PROTHROMBIN COMPLX(PCC) 500 UNIT KIT IV STA (02:18)
[2019-08-17] MEDS ORDERED: HUMAN PROTHROMBIN COMPLEX PCC IV ONE (02:30)
[2019-08-17] MEDS ORDERED: clindamycin 600mg/D5W 50ml 50 ML IV ONE (02:35)
[2019-08-17] MEDS ORDERED: BUPIVAcaine/PF 2.5 mg/ml (0.25%) 30ml vial ONE (02:53)
[2019-08-17] MEDS ORDERED: LIDOcaine 1% 30ml preserv. free vial ONE (02:53)
[2019-08-17 03:08] LABS: PARTIAL THROMBOPLASTIN TIME 34 SECONDS (22-32)
[2019-08-17] MEDS ORDERED: ringers solution, lacted 1,000 ML IV SCH (03:18)
[2019-08-17] MEDS ORDERED: proCHLORperazine 10 MG/2 ml inj IV PRN (03:20)
[2019-08-17] MEDS ORDERED: meperidine/PF 25mg/ml syringe IV PRN ×3 (03:20)
[2019-08-17] MEDS ORDERED: morphine 4 MG/ML inj SYRINge IV PRN ×2 (03:20)
[2019-08-17] MEDS ORDERED: MIDAZolam 5mg/5ml vial ONE (03:39)
[2019-08-17] MEDS ORDERED: fentaNYL/PF 50MCG/1 ML 2ML syringe ONE (03:39)
[2019-08-17] MEDS ORDERED: HYDROcodone/acetaminophen 10/325mg tab PO PRN (04:20)
--- NOTE | 2019-08-17 04:28 | NUR ---
Received from OR via BED, accompanied by Anesthesiologist DR LADD and report given by Anesthesiologist. PT VERY DROWSY, NO S/S OF DISTRESS/DISCOMFORT, ABDOMEN W/SMALL ISLAND DRSG COVERING INCISION CDI. Addendum: 08/17/19 at 0524 by Hermila Bacon RN Amended: Links added.
[2019-08-17] MEDS ORDERED: flumazenil 0.1 mg/ml inj. IV ONE (04:29)
[2019-08-17 05:21] LABS: ABG BASE EXCESS -6.8 mmol/L (-2.0-3.0); ABG HCO3 18.7 mmol/L (22.0-26.0); ABG PCO2 (T) 36.4 mmHg (35.0-45.0); ABG PH (T) 7.324 (7.350-7.450); ABG PO2 (T) 42.2 mmHg (83-108); ALLEN'S TEST Positive; FMetHb 0.2 % (0.3-1.12); FO2Hb 73.1 % (94-100); MINUTE VOLUME 12 L/min; PATIENT TEMPERATURE 36.2; RESPIRATORY RATE 20 b/min; RESPIRATORY RATE (OBSERVED) 24 b/min; TIDAL VOLUME 518 mL; TOTAL HEMOGLOBIN 15.1 G/dl (14.0-17.9)
[2019-08-17] MEDS ORDERED: sodium bicarbonate (8.4%) inj. 50 MEQ in dextrose 5%-water 1,000 ML IV SCH (05:25)
[2019-08-17] MEDS ORDERED: DEXTROSE 5% IV ONE (05:35)
[2019-08-17] MEDS ORDERED: SODIUM BICARBONATE IV ONE (05:35)
[2019-08-17] MEDS ORDERED: WATER IV ONE (05:35)
--- NOTE | 2019-08-17 05:38 | NUR ---
Report called to receiving nurse. PT AWAKES AND IS APPROPRIATE, ABG REVIEWED W/DR LADD, ORDERS TO GIVE 1 AMP BICARB OVER 1 HOUR, ORDERED AND DISCUSSED W/ PHARMACIST, MYA TO TRANSFER PT TO ICU, Transferred via BED ON BIPAP, CM, NO Belongings, RECEIVING RN AT BEDSIDE TO RECEIVE PT. Special Issues communicated to receiving nurse. YES. Addendum: 08/17/19 at 0550 by Hermila Bacon RN Amended: Links added.
--- NOTE | 2019-08-17 06:05 | NUR ---
0530..Patient in room ICU 2045. I have received report from Jessica KYLE and had the opportunity to ask questions and assume patient care. Pt awake, vital signs stable, abd incision clean dry and intact, denies pain at present, pt wearing bipap at 100%, sats 80-84, pt stating that is his "normal".
--- NOTE | 2019-08-17 06:26 | NUR ---
0625..Problems reprioritized. Patient report given, questions answered & plan of care reviewed with Raj KYLE.
--- NOTE | 2019-08-17 06:56 | NUR ---
Patient in room ICU 2045. I have received report from ANABELLA Teresa and had the opportunity to ask questions and assume patient care.
[2019-08-17 07:59] LABS: BASOPHILS # (AUTO) 0.1 X10'3 (0-0.2); BASOPHILS % (AUTO) 0.8 % (0-1); EOSINOPHILS % (AUTO) 0.2 % (0-6); HEMATOCRIT 48.1 % (42.0-52.0); LYMPHOCYTES % (AUTO) 7.7 % (21-51); MEAN CORPUSCULAR HEMOGLOBIN 26.5 PG (27.0-31.0); MEAN CORPUSCULAR HGB CONC 31.1 g/dL (33.0-36.5); MEAN CORPUSCULAR VOLUME 85.2 FL (78-98); MONOCYTES # (AUTO) 1.1 X10'3 (0-0.9); MONOCYTES % (AUTO) 8.6 % (2-12); NEUTROPHILS # (AUTO) 10.4 X10'3 (1.8-7.7); NEUTROPHILS % (AUTO) 82.7 % (42-75); PLATELET COUNT 161 X10'3 (140-440); RED BLOOD COUNT 5.64 X10'6 (4.70-6.10); RED CELL DISTRIBUTION WIDTH 18.9 % (11.5-14.5); WHITE BLOOD COUNT 12.6 X10'3 (4.5-11.0)
[2019-08-17] MEDS ORDERED: heparin, porcine 5000 units/ml vial SQ SCH (08:00)
[2019-08-17] MEDS: K and/or MAG REPLACEMENT MC SCH (08:00)
[2019-08-17] MEDS ORDERED: enoxaparin 60mg/0.6ml syringe SUBCUT SCH (08:00)
[2019-08-17 08:06] LABS: ALBUMIN 3.4 G/DL (3.4-5.0); ANION GAP 13 (8-16); BLOOD UREA NITROGEN 15 MG/DL (7-18); BUN/CREATININE RATIO 13.4 (5.4-32.0); CALCIUM 8.7 MG/DL (8.5-10.1); CHLORIDE 101 MMOL/L (99-107); CREATININE 1.12 MG/DL (0.60-1.10); GLUCOSE 116 MG/DL (70-104); SODIUM 136 MMOL/L (135-145); TOTAL CARBON DIOXIDE 21.9 MMOL/L (24-32); eGFR 65 ML/MIN
[2019-08-17 08:09] LABS: POTASSIUM 4.5 MMOL/L (3.5-5.1)
[2019-08-17 08:17] LABS: PLATELET ESTIMATE NORMAL
[2019-08-17 08:18] LABS: ANISOCYTOSIS 2+; ELLIPTOCYTES FEW; POLYCHROMASIA 1+; TARGET CELLS 1+
[2019-08-17] MEDS ORDERED: enoxaparin 60mg/0.6ml syringe SUBCUT ONE (10:35)
[2019-08-17] MEDS ORDERED: [UNRECOGNIZED DRUG - OTHER] NASALCANN SCH (10:35)
[2019-08-17] MEDS ORDERED: OXYGEN NASALCANN SCH (10:35)
--- NOTE | 2019-08-17 11:30 | NUR ---
Pt had not voided,assisted to stand at bedside,up to sit on BSC,Unable to void,bladder scanned 1230 with 686cc in bladder,pt again attempted walking at bedside,up to BSC, st. cathed @1345 for 600 cc asif urine
--- NOTE | 2019-08-17 11:47 | NUR ---
DM Consult: Pt A1C 7.0; still needs official MD KAYLEIGH BAEZA. Skin Care Therapist is aware and reports pt to f/u w/ PCP as outpatient for DM management. DM ed deferred at this time. Addendum: 08/17/19 at [address] Amended: Links added.
[2019-08-17] MEDS ORDERED: oxyCODONE/APAP 10/325mg tablet PO PRN (14:00)
[2019-08-17] MEDS: sildenafil citrate 20mg tablet PO SCH ×2 (14:18→21:06)
[2019-08-17] MEDS: oxyCODONE/APAP 10/325mg tablet PO PRN ×2 (15:43→22:15)
--- NOTE | 2019-08-17 15:45 | NUR ---
gave percocet for sever pain 1 tab. Medication would not scan. Pharmacy notified.
--- NOTE | 2019-08-17 19:16 | NUR ---
183..Patient in room ICU 2045. I have received report from Raj KYLE and had the opportunity to ask questions and assume patient care.
[2019-08-17] MEDS: warfarin 5mg tablet PO SCH (21:05)
[2019-08-17] MEDS: furosemide 20MG tablet PO SCH (21:06)
[2019-08-17] MEDS: spironolactone 25 MG tablet PO SCH (21:06)
--- NOTE | 2019-08-17 21:44 | NUR ---
2100..Declines bath and or hs care at this time.
--- NOTE | 2019-08-17 21:44 | NUR ---
2000..Assessment as noted, denies any complaints at this time.
--- NOTE | 2019-08-17 23:35 | NUR ---
2300..medicated for complaints of abd/incisional pain, with perocet as ordered, with good effect, no other changes noted.
[2019-08-18] VITALS (22 sets, daily range): BP systolic 93–125; BP diastolic 52–79
--- NOTE | 2019-08-18 00:34 | NUR ---
0000..No changes noted, resting quietly. Unable to complete admission assessment,vaccine review, and past medical history, as pt states he wants to sleep and can't be bothered.
--- NOTE | 2019-08-18 03:14 | NUR ---
0300..Bladder scanned for less than 200 cc. denies urge to pee. Bipap changes to salter, at 15l, complaining of nose being sore, bridge of nose red, but blanches.
--- NOTE | 2019-08-18 05:10 | NUR ---
0400..no changes noted.
[2019-08-18 06:04] LABS: BASOPHILS % (AUTO) 0.4 % (0-1); EOSINOPHILS % (AUTO) 0.1 % (0-6); HEMATOCRIT 47.2 % (42.0-52.0); HEMOGLOBIN 14.8 g/dl (14.0-17.9); LYMPHOCYTES # (AUTO) 0.9 X10'3 (1.1-4.8); LYMPHOCYTES % (AUTO) 11.3 % (21-51); MEAN CORPUSCULAR HEMOGLOBIN 26.8 PG (27.0-31.0); MEAN CORPUSCULAR HGB CONC 31.4 g/dL (33.0-36.5); MEAN CORPUSCULAR VOLUME 85.1 FL (78-98); MEAN PLATELET VOLUME 7.6 FL (7.4-10.4); MONOCYTES # (AUTO) 0.7 X10'3 (0-0.9); MONOCYTES % (AUTO) 8.5 % (2-12); NEUTROPHILS # (AUTO) 6.5 X10'3 (1.8-7.7); NEUTROPHILS % (AUTO) 79.7 % (42-75); PLATELET COUNT 197 X10'3 (140-440); RED BLOOD COUNT 5.54 X10'6 (4.70-6.10); RED CELL DISTRIBUTION WIDTH 18.6 % (11.5-14.5); WHITE BLOOD COUNT 8.2 X10'3 (4.5-11.0)
[2019-08-18 06:06] LABS: ANION GAP 7 (8-16); BLOOD UREA NITROGEN 19 MG/DL (7-18); BUN/CREATININE RATIO 16.4 (5.4-32.0); CALCIUM 8.7 MG/DL (8.5-10.1); CHLORIDE 100 MMOL/L (99-107); CREATININE 1.16 MG/DL (0.60-1.10); GLUCOSE 104 MG/DL (70-104); MAGNESIUM 2.2 MG/DL (1.5-2.4); POTASSIUM 4.6 MMOL/L (3.5-5.1); SODIUM 137 MMOL/L (135-145); TOTAL CARBON DIOXIDE 30.4 MMOL/L (24-32); eGFR 63 ML/MIN
--- NOTE | 2019-08-18 06:08 | NUR ---
0500..O2 sats now in the low 80s and high 70s, pt curremtly refusing bipap, stating "its always like this", denies feeling short of breath or distressed.
--- NOTE | 2019-08-18 06:21 | NUR ---
0600..Problems reprioritized. Patient report given, questions answered & plan of care reviewed with Rosa KYLE.
--- NOTE | 2019-08-18 06:41 | NUR ---
Handoff received from off going RN. Pt sating 82% on 15L. Md aware of pt low sats and PaO2 in 40s on 08/17 am labs. Pt AxOX4 with easy work of breathing. Will continue to monitor closely.
--- NOTE | 2019-08-18 07:06 | NUR ---
Pt reports missing glasses. Unable to locate them anywhere in room, trash, pt specific bin, or drawers. Pt reports having a previous RN take them off prior to putting on bipap. Will continue to look for them.
[2019-08-18] MEDS: K and/or MAG REPLACEMENT MC SCH (07:22)
[2019-08-18] MEDS: OMEGA-3/DHA/EPA/FISH OIL 1 EACH CAPSULE.DR PO SCH (07:26)
[2019-08-18] MEDS: sildenafil citrate 20mg tablet PO SCH ×3 (07:26→20:58)
[2019-08-18] MEDS: vitamin D (cholecalciferol) 1,000 unit tablet PO SCH (07:26)
[2019-08-18] MEDS: spironolactone 25 MG tablet PO SCH ×2 (07:26→20:13)
[2019-08-18] MEDS: furosemide 20MG tablet PO SCH ×2 (07:26→20:13)
[2019-08-18 07:54] LABS: ANISOCYTOSIS 2+; PLATELET ESTIMATE NORMAL
[2019-08-18] MEDS: oxyCODONE/APAP 10/325mg tablet PO PRN (10:45)
--- NOTE | 2019-08-18 15:45 | NUR ---
pt continues to sat high 70s-low 80s. MD garcia aware of pt low saturations. Pt continues to report feeling well despite O2 being up from baseline of 4-6L. Pt is AxOX4. BPs 100s/60s. HR 70s. Will continue to monitor closely.
--- NOTE | 2019-08-18 16:59 | NUR ---
Low sats of 79% brought again to attention of charge nurse and MD garcia at bedside. Pt remains on 15L NC. Appears well with stable vital signs. Will continue to monitor. Addendum: 08/18/19 at 1702 by Xavier Mcallister RN Amended: Links added.
--- NOTE | 2019-08-18 18:30 | NUR ---
assumed care from Xavier KYLE, no questions or concerns after assuming care
--- NOTE | 2019-08-18 18:53 | NUR ---
Dr. Brewster and Vielka PLUNKETT aware of patients spo2 in mid 70's to low 80's on 15 L HF
[2019-08-18] MEDS: warfarin 5mg tablet PO SCH (20:58)
--- NOTE | 2019-08-18 23:21 | NUR ---
patient appears to be ion good spirits when asking patient how they are doing and if any thing is hurting at this time, patient continues to lay in bed hob 45 % rr even un labored no observable s/s of acute stress at this time will continue to monitor
[2019-08-19] VITALS (24 sets, daily range): BP systolic 91–128; BP diastolic 53–73
--- NOTE | 2019-08-19 01:20 | NUR ---
patient in bed rr even un labored eyes are closed covers on no observable s/s of acute stress at this time will continue to monitor
--- NOTE | 2019-08-19 03:49 | NUR ---
patient appears to be sleeping eyes closed covers on hob 45 % rr even un labored no observable s/s of acute stress at this time
[2019-08-19 05:19] LABS: BASOPHILS % (AUTO) 0.2 % (0-1); EOSINOPHILS # (AUTO) 0.1 X10'3 (0-0.9); EOSINOPHILS % (AUTO) 0.8 % (0-6); HEMATOCRIT 44.1 % (42.0-52.0); HEMOGLOBIN 14.1 g/dl (14.0-17.9); LYMPHOCYTES # (AUTO) 0.6 X10'3 (1.1-4.8); LYMPHOCYTES % (AUTO) 8.3 % (21-51); MEAN CORPUSCULAR HEMOGLOBIN 26.9 PG (27.0-31.0); MEAN PLATELET VOLUME 7.7 FL (7.4-10.4); MONOCYTES # (AUTO) 0.7 X10'3 (0-0.9); MONOCYTES % (AUTO) 9.1 % (2-12); NEUTROPHILS # (AUTO) 6.3 X10'3 (1.8-7.7); NEUTROPHILS % (AUTO) 81.6 % (42-75); PLATELET COUNT 178 X10'3 (140-440); RED BLOOD COUNT 5.24 X10'6 (4.70-6.10); RED CELL DISTRIBUTION WIDTH 18.1 % (11.5-14.5); WHITE BLOOD COUNT 7.8 X10'3 (4.5-11.0)
[2019-08-19 05:25] LABS: ALBUMIN 2.9 G/DL (3.4-5.0); ANION GAP 7 (8-16); BLOOD UREA NITROGEN 22 MG/DL (7-18); BUN/CREATININE RATIO 22.2 (5.4-32.0); CALCIUM 8.8 MG/DL (8.5-10.1); CHLORIDE 99 MMOL/L (99-107); CREATININE 0.99 MG/DL (0.60-1.10); GLUCOSE 94 MG/DL (70-104); MAGNESIUM 1.8 MG/DL (1.5-2.4); POTASSIUM 4.6 MMOL/L (3.5-5.1); SODIUM 133 MMOL/L (135-145); TOTAL CARBON DIOXIDE 27.5 MMOL/L (24-32); eGFR 75 ML/MIN
--- NOTE | 2019-08-19 06:27 | NUR ---
SBAR TO GIRISH KYLE NO QUESTIONS OR CONCERNS AFTER ASSUMING CARE
--- NOTE | 2019-08-19 06:30 | NUR ---
Patient in room ICU 2045. I have received report from Kashif KYLE and had the opportunity to ask questions and assume patient care.
[2019-08-19] MEDS: K and/or MAG REPLACEMENT MC SCH (08:00)
[2019-08-19] MEDS: furosemide 20MG tablet PO SCH ×2 (08:29→20:18)
[2019-08-19] MEDS: spironolactone 25 MG tablet PO SCH ×2 (08:29→20:18)
[2019-08-19] MEDS: sildenafil citrate 20mg tablet PO SCH ×3 (08:30→21:05)
[2019-08-19] MEDS: vitamin D (cholecalciferol) 1,000 unit tablet PO SCH (08:30)
[2019-08-19] MEDS: OMEGA-3/DHA/EPA/FISH OIL 1 EACH CAPSULE.DR PO SCH (08:30)
--- NOTE | 2019-08-19 13:30 | NUR ---
bladder scanned pt; 525mL of residual noted. pt refusing straight cath after educating pt. pt at this time feels a slight urge. will continue to monitor
[2019-08-19] MEDS: oxyCODONE/APAP 10/325mg tablet PO PRN (14:43)
--- NOTE | 2019-08-19 18:25 | NUR ---
assumed care from avelina khan no questions or concerns after assuming care
--- NOTE | 2019-08-19 18:28 | NUR ---
Problems reprioritized. Patient report given, questions answered & plan of care reviewed with Kashif KYLE.
--- NOTE | 2019-08-19 20:10 | NUR ---
patient un able to urinate in urinal will bladder scan and possibly straight cath if needed, patients rr even un labored no observable s/s of acute stress at this time will continue to monitor
[2019-08-19] MEDS: warfarin 4mg tablet PO SCH (21:06)
[2019-08-19] MEDS: tamsulosin 0.4mg capsule PO SCH (21:08)
--- NOTE | 2019-08-19 22:00 | NUR ---
patient in bed eyes closed rr even un labored no observable s/s of acute stress at this time will continue to monitor
[2019-08-20] VITALS (24 sets, daily range): BP systolic 90–119; BP diastolic 50–73
--- NOTE | 2019-08-20 03:14 | NUR ---
PATIENT IN BED TURNED TO HIS LEFT SIDE RR EVEN UN LABORED EYES CLOSED BLANKETS ON NO OBSERVABLE S/S OF ACUTE STRESS AT THIS TIME WILL CONTINUE TO MONITOR
[2019-08-20 06:14] LABS: ALBUMIN 2.8 G/DL (3.4-5.0); ANION GAP 9 (8-16); BLOOD UREA NITROGEN 24 MG/DL (7-18); BUN/CREATININE RATIO 22.2 (5.4-32.0); CALCIUM 8.4 MG/DL (8.5-10.1); CHLORIDE 95 MMOL/L (99-107); CREATININE 1.08 MG/DL (0.60-1.10); GLUCOSE 81 MG/DL (70-104); MAGNESIUM 1.8 MG/DL (1.5-2.4); POTASSIUM 4.6 MMOL/L (3.5-5.1); SODIUM 132 MMOL/L (135-145); TOTAL CARBON DIOXIDE 28.4 MMOL/L (24-32); eGFR 68 ML/MIN
[2019-08-20 06:23] LABS: BASOPHILS % (AUTO) 0.3 % (0-1); EOSINOPHILS # (AUTO) 0.1 X10'3 (0-0.9); EOSINOPHILS % (AUTO) 1.3 % (0-6); HEMATOCRIT 45.2 % (42.0-52.0); HEMOGLOBIN 14.4 g/dl (14.0-17.9); LYMPHOCYTES # (AUTO) 1.1 X10'3 (1.1-4.8); LYMPHOCYTES % (AUTO) 13.6 % (21-51); MEAN CORPUSCULAR HEMOGLOBIN 26.6 PG (27.0-31.0); MEAN CORPUSCULAR HGB CONC 31.8 g/dL (33.0-36.5); MEAN CORPUSCULAR VOLUME 83.5 FL (78-98); MEAN PLATELET VOLUME 7.8 FL (7.4-10.4); MONOCYTES # (AUTO) 0.7 X10'3 (0-0.9); MONOCYTES % (AUTO) 8.7 % (2-12); NEUTROPHILS # (AUTO) 5.9 X10'3 (1.8-7.7); NEUTROPHILS % (AUTO) 76.1 % (42-75); PLATELET COUNT 191 X10'3 (140-440); RED BLOOD COUNT 5.41 X10'6 (4.70-6.10); RED CELL DISTRIBUTION WIDTH 18.2 % (11.5-14.5); WHITE BLOOD COUNT 7.8 X10'3 (4.5-11.0)
--- NOTE | 2019-08-20 06:23 | NUR ---
SBAR TO MICHAELA RN NO QUESTIONS OR CONCERNS AFTER ASSUMING CARE
[2019-08-20] MEDS: K and/or MAG REPLACEMENT MC SCH (07:03)
[2019-08-20] MEDS: sildenafil citrate 20mg tablet PO SCH ×3 (07:29→20:06)
[2019-08-20] MEDS: vitamin D (cholecalciferol) 1,000 unit tablet PO SCH (07:29)
[2019-08-20] MEDS: furosemide 20MG tablet PO SCH ×2 (07:29→20:06)
[2019-08-20] MEDS: OMEGA-3/DHA/EPA/FISH OIL 1 EACH CAPSULE.DR PO SCH (07:29)
[2019-08-20] MEDS: spironolactone 25 MG tablet PO SCH ×2 (09:09→20:06)
--- NOTE | 2019-08-20 10:11 | NUR ---
Malnutrition consult: Pt s/p umbilical herniorrhaphy PO 100% clear liquids past 2 meals. Pt recent admit 3 days ago PO 75-100% meals w/ no significant wt loss hx, edema, or weakness present. At this time pt does not meet minimum malnutrition criteria. LBM 08/16 receiving colace for 1 day so far. Will continue to monitor for diet advancement and additional protein needs post-op. Rec: 1. advance diet per MD to carb controlled 2. routine bowel care 3. monitor for ONS needs as diet advances 4. wt per rx Addendum: 08/20/19 at [address] Amended: Links added. Addendum: 08/20/19 at [address] Malnutrition consult: Pt s/p umbilical herniorrhaphy PO 100% clear liquids past 2 meals. Pt recent admit 3 days ago PO 75-100% meals w/ no significant wt loss hx, edema, or weakness present. At this time pt does not meet minimum malnutrition criteria. LBM 08/16 w/ MoM PRN not given yet post-op. Would benefit from routine bowel care per MD approval. Will continue to monitor for diet advancement and additional protein needs post-op. Rec: 1. advance diet per MD to carb controlled 2. routine bowel care 3. monitor for ONS needs as diet advances 4. wt per rx
[2019-08-20] MEDS ORDERED: LIDOcaine 2% 10ml TOPICAL JELLY (Urojet) MM ONE (11:40)
[2019-08-20] MEDS: oxyCODONE/APAP 10/325mg tablet PO PRN (14:49)
--- NOTE | 2019-08-20 15:36 | NUR ---
Physical therapy discussed with nursing that the patient's INR is too elevated to ambulate patient today. Patient up in room, stretching and walking in place. Patient ambulation intervention not complete due to the risk for bleeding. Will continue to monitor.
--- NOTE | 2019-08-20 18:24 | NUR ---
Problems reprioritized. Patient report given, questions answered & plan of care reviewed with [place]ia KYLE.
[2019-08-20] MEDS: tamsulosin 0.4mg capsule PO SCH (20:06)
[2019-08-20] MEDS: warfarin 4mg tablet PO SCH (21:00)
[2019-08-21] VITALS (23 sets, daily range): BP systolic 91–107; BP diastolic 53–66
[2019-08-21 06:21] LABS: ALBUMIN 2.6 G/DL (3.4-5.0); ANION GAP 6 (8-16); BASOPHILS % (AUTO) 0.1 % (0-1); BLOOD UREA NITROGEN 21 MG/DL (7-18); BUN/CREATININE RATIO 22.8 (5.4-32.0); CALCIUM 8.3 MG/DL (8.5-10.1); CHLORIDE 95 MMOL/L (99-107); CREATININE 0.92 MG/DL (0.60-1.10); EOSINOPHILS # (AUTO) 0.1 X10'3 (0-0.9); EOSINOPHILS % (AUTO) 1.6 % (0-6); GLUCOSE 89 MG/DL (70-104); HEMATOCRIT 43.6 % (42.0-52.0); LYMPHOCYTES # (AUTO) 0.8 X10'3 (1.1-4.8); LYMPHOCYTES % (AUTO) 10.7 % (21-51); MAGNESIUM 1.8 MG/DL (1.5-2.4); MEAN CORPUSCULAR HEMOGLOBIN 26.8 PG (27.0-31.0); MEAN CORPUSCULAR HGB CONC 32.1 g/dL (33.0-36.5); MEAN CORPUSCULAR VOLUME 83.6 FL (78-98); MEAN PLATELET VOLUME 7.7 FL (7.4-10.4); MONOCYTES # (AUTO) 0.7 X10'3 (0-0.9); MONOCYTES % (AUTO) 8.5 % (2-12); NEUTROPHILS # (AUTO) 6.2 X10'3 (1.8-7.7); NEUTROPHILS % (AUTO) 79.1 % (42-75); PLATELET COUNT 187 X10'3 (140-440); POTASSIUM 4.7 MMOL/L (3.5-5.1); RED BLOOD COUNT 5.21 X10'6 (4.70-6.10); RED CELL DISTRIBUTION WIDTH 18.5 % (11.5-14.5); SODIUM 129 MMOL/L (135-145); TOTAL CARBON DIOXIDE 28.2 MMOL/L (24-32); WHITE BLOOD COUNT 7.8 X10'3 (4.5-11.0); eGFR 82 ML/MIN
--- NOTE | 2019-08-21 06:28 | NUR ---
Patient in room ICU 2045. I have received report from [place] KYLE and had the opportunity to ask questions and assume patient care. Resting in chair, eyes closed respirations even.
[2019-08-21] MEDS: K and/or MAG REPLACEMENT MC SCH (06:36)
[2019-08-21] MEDS: OMEGA-3/DHA/EPA/FISH OIL 1 EACH CAPSULE.DR PO SCH (07:29)
[2019-08-21] MEDS: sildenafil citrate 20mg tablet PO SCH ×3 (07:29→21:28)
[2019-08-21] MEDS: vitamin D (cholecalciferol) 1,000 unit tablet PO SCH (07:29)
[2019-08-21] MEDS ORDERED: levetiracetam inj 1,000 MG in normal saline 100ml IV soln 90 ML IV SCH (07:35)
[2019-08-21] MEDS ORDERED: levetiracetam inj 500 MG in normal saline 100ml IV soln 95 ML IV SCH (08:00)
[2019-08-21] MEDS: spironolactone 25 MG tablet PO SCH ×2 (10:07→20:41)
[2019-08-21] MEDS: furosemide 20MG tablet PO SCH ×2 (10:08→20:42)
--- NOTE | 2019-08-21 13:40 | NUR ---
Received report from ANABELLA Newell. Awaiting patient arrival to room 3013A.
--- NOTE | 2019-08-21 13:50 | NUR ---
Provided report to Malka KYLE on PCU, gathered belongings, Malu RT switched patient to venturi mask for transport and had high flow nasal cannula in 3013B when we arrived. Patient has new metal buggy operator on and is in no apparent distress. and daughter followed with. Patient assisted in to bed at this time and care transferred to Malka KYLE.
--- NOTE | 2019-08-21 14:06 | NUR ---
3013A, Nida. We have a patient coming up from ICU that is on 15L high flow, can you please come set it up. Thank you.
--- NOTE | 2019-08-21 14:15 | NUR ---
Patient arrived to room 3013A via wheelchair, and ambulated from wheelchair to the bed. Patient on 15L high flow NC. Bed locked and lowered, side rails up x 2, nonskid socks on, call light in reach, and frequent rounding. Patient awake and in no acute distress. and daughter at the bedside.
--- NOTE | 2019-08-21 18:22 | NUR ---
[place] documentation: I have reviewed and agree with interventions, assessments performed and documented by Malka KYLE. [place] Medication Administration: For this medication-pass time frame, medication were reviewed, dispensed, administered and documented per hospital policy by Malka KYLE.
--- NOTE | 2019-08-21 18:24 | NUR ---
Problems reprioritized. Patient report given, questions answered & plan of care reviewed with Liliya KYLE.
--- NOTE | 2019-08-21 18:29 | NUR ---
Paged respiratory Rm [id number], Nida. Could you please come set up the bipap that was brought up from ICU. Patient is on high flow at 15L and still 86% o2sat. Thank you.
--- NOTE | 2019-08-21 18:30 | NUR ---
Problems reprioritized. Patient report given, questions answered & plan of care reviewed with ANABELLA Lovell. Patient stable at transfer of care.
[2019-08-21] MEDS: warfarin 4mg tablet PO SCH (19:49)
--- NOTE | 2019-08-21 19:55 | NUR ---
Patient in room PCU 3013. I have received report from Malka KYLE and had the opportunity to ask questions and assume patient care. pt O2 is 86% contacted RT about O2 nirmal, Shane and Carley RT said he has hypertension pulmonary and pt alsoo stated that he is chronic hypoxic due to hypertension pulmonary. will keep monitoring
[2019-08-21] MEDS: tamsulosin 0.4mg capsule PO SCH (20:45)
[2019-08-22] VITALS (7 sets, daily range): BP systolic 94–126; BP diastolic 56–75
[2019-08-22 05:39] LABS: BASOPHILS # (AUTO) 0.1 X10'3 (0-0.2); BASOPHILS % (AUTO) 0.8 % (0-1); EOSINOPHILS # (AUTO) 0.1 X10'3 (0-0.9); EOSINOPHILS % (AUTO) 1.6 % (0-6); HEMATOCRIT 44.2 % (42.0-52.0); HEMOGLOBIN 14.2 g/dl (14.0-17.9); LYMPHOCYTES # (AUTO) 1.2 X10'3 (1.1-4.8); LYMPHOCYTES % (AUTO) 16.1 % (21-51); MEAN CORPUSCULAR HEMOGLOBIN 26.5 PG (27.0-31.0); MEAN CORPUSCULAR HGB CONC 32.3 g/dL (33.0-36.5); MEAN CORPUSCULAR VOLUME 82.1 FL (78-98); MEAN PLATELET VOLUME 7.6 FL (7.4-10.4); MONOCYTES # (AUTO) 0.8 X10'3 (0-0.9); MONOCYTES % (AUTO) 10.4 % (2-12); NEUTROPHILS # (AUTO) 5.5 X10'3 (1.8-7.7); NEUTROPHILS % (AUTO) 71.1 % (42-75); PLATELET COUNT 201 X10'3 (140-440); RED BLOOD COUNT 5.38 X10'6 (4.70-6.10); RED CELL DISTRIBUTION WIDTH 18.5 % (11.5-14.5); WHITE BLOOD COUNT 7.7 X10'3 (4.5-11.0)
[2019-08-22 06:02] LABS: ALBUMIN 2.6 G/DL (3.4-5.0); ANION GAP 7 (8-16); BLOOD UREA NITROGEN 17 MG/DL (7-18); BUN/CREATININE RATIO 21.3 (5.4-32.0); CALCIUM 8.3 MG/DL (8.5-10.1); CHLORIDE 96 MMOL/L (99-107); GLUCOSE 86 MG/DL (70-104); MAGNESIUM 1.7 MG/DL (1.5-2.4); POTASSIUM 4.1 MMOL/L (3.5-5.1); SODIUM 130 MMOL/L (135-145); TOTAL CARBON DIOXIDE 27.1 MMOL/L (24-32); eGFR > 90 ML/MIN
--- NOTE | 2019-08-22 06:34 | NUR ---
notified September VICE PRESIDENT PAYER about IRN 7.8, Rotary Helper aware no changed in order
--- NOTE | 2019-08-22 07:38 | NUR ---
Patient in room PCU 3013. I have received report from [facility] and had the opportunity to ask questions and assume patient care.
[2019-08-22] MEDS: K and/or MAG REPLACEMENT MC SCH (08:00)
[2019-08-22] MEDS: vitamin D (cholecalciferol) 1,000 unit tablet PO SCH (08:11)
[2019-08-22] MEDS: spironolactone 25 MG tablet PO SCH ×2 (08:11→20:25)
[2019-08-22] MEDS: furosemide 20MG tablet PO SCH ×2 (08:11→20:25)
[2019-08-22] MEDS: OMEGA-3/DHA/EPA/FISH OIL 1 EACH CAPSULE.DR PO SCH (08:11)
[2019-08-22] MEDS: sildenafil citrate 20mg tablet PO SCH ×3 (09:38→20:25)
--- NOTE | 2019-08-22 16:11 | NUR ---
Phillips catheter discontinued at 1600 as he did not meet protocol. Dr. Woodson aware. Pt tolerated procedure well. Urinal provided to patient, will continue to monitor urine output.
--- NOTE | 2019-08-22 18:42 | NUR ---
Problems reprioritized. Patient report given, questions answered & plan of care reviewed with Clemencia, patient eating dinner. Refuses any nausea or vomiting, patient in no apparent distress.
[2019-08-22] MEDS: warfarin 4mg tablet PO SCH (18:49)
--- NOTE | 2019-08-22 18:49 | NUR ---
INR 7.8 Coumadin held per order
--- NOTE | 2019-08-22 19:20 | NUR ---
Spoke to MD about SpO2 86 on 15L high flow. States due to his pulmonary HTN, okay to keep in mid 80's. Will review chart and place any further orders necessary, per MD.
[2019-08-22] MEDS: tamsulosin 0.4mg capsule PO SCH (20:25)
--- NOTE | 2019-08-22 20:30 | NUR ---
Patient states passing gas.
--- NOTE | 2019-08-22 21:07 | NUR ---
Patient states he has not urinated as of yet, has no urge to void, no discomfort.
[2019-08-23] VITALS (13 sets, daily range): BP systolic 85–106; BP diastolic 49–84
[2019-08-23] MEDS: oxyCODONE/APAP 10/325mg tablet PO PRN (00:36)
--- NOTE | 2019-08-23 02:00 | NUR ---
PT NPO now for para
--- NOTE | 2019-08-23 04:30 | NUR ---
Tele box reports 70's. Pt had taken O2 off. Replaced on 15L HF NC, sats returned to mid 80's.
[2019-08-23 06:19] LABS: BASOPHILS % (AUTO) 0.4 % (0-1); EOSINOPHILS # (AUTO) 0.2 X10'3 (0-0.9); EOSINOPHILS % (AUTO) 1.9 % (0-6); HEMATOCRIT 44.5 % (42.0-52.0); HEMOGLOBIN 14.5 g/dl (14.0-17.9); LYMPHOCYTES # (AUTO) 1.5 X10'3 (1.1-4.8); LYMPHOCYTES % (AUTO) 17.2 % (21-51); MEAN CORPUSCULAR HEMOGLOBIN 26.7 PG (27.0-31.0); MEAN CORPUSCULAR HGB CONC 32.5 g/dL (33.0-36.5); MEAN CORPUSCULAR VOLUME 82.1 FL (78-98); MEAN PLATELET VOLUME 7.5 FL (7.4-10.4); MONOCYTES # (AUTO) 0.9 X10'3 (0-0.9); NEUTROPHILS # (AUTO) 5.9 X10'3 (1.8-7.7); NEUTROPHILS % (AUTO) 69.5 % (42-75); PLATELET COUNT 220 X10'3 (140-440); RED BLOOD COUNT 5.42 X10'6 (4.70-6.10); RED CELL DISTRIBUTION WIDTH 18.4 % (11.5-14.5); WHITE BLOOD COUNT 8.5 X10'3 (4.5-11.0)
--- NOTE | 2019-08-23 06:25 | NUR ---
Problems reprioritized. Patient report given, questions answered & plan of care reviewed with Leia RN's.
--- NOTE | 2019-08-23 06:25 | NUR ---
Patient in room PCU 3013. I have received report from Leta KYLE and had the opportunity to ask questions and assume patient care.
[2019-08-23 06:40] LABS: ALBUMIN 2.6 G/DL (3.4-5.0); ALBUMIN/GLOBULIN RATIO 0.9 (1.1-1.5); ALKALINE PHOSPHATASE 105 IU/L (46-116); ANION GAP 7 (8-16); ASPARTATE AMINO TRANSFERASE 16 U/L (10-37); BLOOD UREA NITROGEN 16 MG/DL (7-18); BUN/CREATININE RATIO 17.4 (5.4-32.0); CALCIUM 8.1 MG/DL (8.5-10.1); CHLORIDE 95 MMOL/L (99-107); CREATININE 0.92 MG/DL (0.60-1.10); GLUCOSE 80 MG/DL (70-104); MAGNESIUM 1.8 MG/DL (1.5-2.4); POTASSIUM 3.9 MMOL/L (3.5-5.1); SODIUM 132 MMOL/L (135-145); TOTAL CARBON DIOXIDE 29.9 MMOL/L (24-32); TOTAL PROTEIN 5.6 G/DL (6.4-8.2); eGFR 82 ML/MIN
--- NOTE | 2019-08-23 07:02 | NUR ---
Called Dr. Woodson regarding critical INR 6.5, left a message w/ my extension. Will continue to monitor the pt.
[2019-08-23] MEDS: OMEGA-3/DHA/EPA/FISH OIL 1 EACH CAPSULE.DR PO SCH (07:47)
[2019-08-23] MEDS: sildenafil citrate 20mg tablet PO SCH ×3 (07:48→20:46)
[2019-08-23] MEDS: vitamin D (cholecalciferol) 1,000 unit tablet PO SCH (07:48)
[2019-08-23] MEDS: furosemide 20MG tablet PO SCH ×2 (07:48→20:00)
[2019-08-23] MEDS: spironolactone 25 MG tablet PO SCH ×2 (07:49→20:00)
[2019-08-23] MEDS: K and/or MAG REPLACEMENT MC SCH (08:00)
[2019-08-23 08:52] LABS: ALANINE AMINOTRANSFERASE 8 U/L (12-78)
[2019-08-23] MEDS ORDERED: omega-3 acid ethyl esters 1GM capsule PO SCH (09:20)
[2019-08-23] MEDS ORDERED: OMEGA-3/DHA/EPA/FISH OIL 1 EACH CAPSULE.DR PO SCH (09:22)
--- NOTE | 2019-08-23 09:37 | NUR ---
Called Dr. Woodson regarding obtaining more specific orders for the pts Spo2, Dr. Woodson said to keep the orders as is, which is to keep Spo2 in the mid 80s. Dr. Woodson is aware that the pt is satting in the high 70s and low 80s but siad this is due to his pulm htn and to keep his O2 orders as is. Also notified that the patient is having frequent nosebleeds, MD aware that the pt has a critical INR of 6.5. No new orders obtained. Will continue to monitor closely.
--- NOTE | 2019-08-23 15:33 | NUR ---
Dr Woodson aware of SPO2, ordered 20 lasix IV and breathing treatment
[2019-08-23] MEDS ORDERED: furosemide 20 MG/2 ML vial IV ONE (15:35)
--- NOTE | 2019-08-23 16:00 | NUR ---
page to RT: [id number], Nida, patient SPO2 <80% on 15L, dr. Woodson says to give him a breathing treatment.
[2019-08-23] MEDS ORDERED: ipratropium/albuterol 3ml nebule ONE (16:10)
[2019-08-23] MEDS ORDERED: ipratropium/albuterol 3ml nebule NEB ONE (16:25)
--- NOTE | 2019-08-23 17:06 | NUR ---
Orientee documentation: I have reviewed and agree with all interventions, assessments performed and documented by ANABELLA Benedict .
--- NOTE | 2019-08-23 18:22 | NUR ---
Problems reprioritized. Patient report given, questions answered & plan of care reviewed with Aster KYLE.
[2019-08-23] MEDS: lactulose 20gm/30ml cup PO SCH (20:00)
[2019-08-23] MEDS: tamsulosin 0.4mg capsule PO SCH (20:46)
[2019-08-24] MEDS: lactulose 20gm/30ml cup PO SCH ×2 (02:00→08:55)
[2019-08-24 03:00] VITALS: BP 94/84
[2019-08-24 05:31] LABS: BASOPHILS % (AUTO) 0.6 % (0-1); EOSINOPHILS # (AUTO) 0.1 X10'3 (0-0.9); HEMATOCRIT 41.3 % (42.0-52.0); HEMOGLOBIN 13.3 g/dl (14.0-17.9); LYMPHOCYTES # (AUTO) 1.6 X10'3 (1.1-4.8); LYMPHOCYTES % (AUTO) 19.8 % (21-51); MEAN CORPUSCULAR HEMOGLOBIN 26.7 PG (27.0-31.0); MEAN CORPUSCULAR HGB CONC 32.2 g/dL (33.0-36.5); MEAN CORPUSCULAR VOLUME 82.8 FL (78-98); MEAN PLATELET VOLUME 7.3 FL (7.4-10.4); MONOCYTES # (AUTO) 0.8 X10'3 (0-0.9); MONOCYTES % (AUTO) 10.5 % (2-12); NEUTROPHILS # (AUTO) 5.4 X10'3 (1.8-7.7); NEUTROPHILS % (AUTO) 68.1 % (42-75); PLATELET COUNT 205 X10'3 (140-440); RED BLOOD COUNT 4.98 X10'6 (4.70-6.10); RED CELL DISTRIBUTION WIDTH 18.4 % (11.5-14.5); WHITE BLOOD COUNT 7.9 X10'3 (4.5-11.0)
[2019-08-24 05:40] LABS: ALANINE AMINOTRANSFERASE 11 U/L (12-78); ALBUMIN 2.6 G/DL (3.4-5.0); ALBUMIN/GLOBULIN RATIO 0.8 (1.1-1.5); ALKALINE PHOSPHATASE 111 IU/L (46-116); ANION GAP 6 (8-16); ASPARTATE AMINO TRANSFERASE 18 U/L (10-37); BILIRUBIN,TOTAL 0.9 MG/DL (0.1-1.0); BLOOD UREA NITROGEN 17 MG/DL (7-18); CALCIUM 8.2 MG/DL (8.5-10.1); CHLORIDE 95 MMOL/L (99-107); CREATININE 0.85 MG/DL (0.60-1.10); GLUCOSE 87 MG/DL (70-104); MAGNESIUM 1.9 MG/DL (1.5-2.4); POTASSIUM 4.2 MMOL/L (3.5-5.1); SODIUM 130 MMOL/L (135-145); TOTAL CARBON DIOXIDE 29.4 MMOL/L (24-32); TOTAL PROTEIN 5.7 G/DL (6.4-8.2); eGFR 90 ML/MIN
[2019-08-24 06:00] VITALS: BP_SYST 140; BP_SYST 99; BP_DIAS 100; BP_DIAS 63
--- NOTE | 2019-08-24 06:15 | NUR ---
Patient in room PCU 3028. I have received report from ANABELLA Rodarte and had the opportunity to ask questions and assume patient care. Patient is currently sleeping in bed, bed locked and low, call light in reach, no acute distress, will continue to monitor.
[2019-08-24] MEDS: K and/or MAG REPLACEMENT MC SCH (08:00)
[2019-08-24] MEDS: furosemide 20MG tablet PO SCH (08:52)
[2019-08-24] MEDS: vitamin D (cholecalciferol) 1,000 unit tablet PO SCH (08:52)
[2019-08-24] MEDS: spironolactone 25 MG tablet PO SCH (08:52)
[2019-08-24] MEDS: sildenafil citrate 20mg tablet PO SCH ×2 (08:53→14:00)
[2019-08-24 11:00] VITALS: BP 98/65
--- NOTE | 2019-08-24 13:50 | NUR ---
22g PIV removed from RFA, cannula intact, pt tolerated. Pressure applied and dressing placed. CDI.
--- NOTE | 2019-08-24 14:43 | NUR ---
received orders for patient transfer to [facility]. Report called to Nayely RN at 1330, IV removed as it was , catheter tip intact, hemostasis achieved, telemetry removed. Patient transported via ambulance. Belongings gathered and room double checked with , patient transported at 1415, stable at time of transfer.
== END 2019-08-24 14:33 | DRG 353 ==
LOC: ER 00:32 → ED HOLD 02:39 → CMPBEDREQ 03:46 → ICU 2S 04:12 → OBSVTOIN 05:30 → INTOOBSV 08-19 05:30 → OBSVTOIN 08-19 05:30 → PCU 3S 08-21 14:20
PROVIDERS: ADMIT Hospitalist; ATTEND Internal Medicine Critical Care Medicine
PROC: 5A09357 Assistance with Respiratory Ventilation, Less than 24 Consecutive Hours, Continuous Positive Airway Pressure (ICD-10-PCS; 2019-08-17)
PROC: BW211ZZ Computerized Tomography (CT Scan) of Abdomen and Pelvis using Low Osmolar Contrast (ICD-10-PCS; 2019-08-17)
PROC: 0WQF0ZZ Repair Abdominal Wall, Open Approach (ICD-10-PCS; principal; 2019-08-17 03:00)
PROC: 30233K1 Transfusion of Nonautologous Frozen Plasma into Peripheral Vein, Percutaneous Approach (ICD-10-PCS; 2019-08-21)
PROC: 0W9G3ZZ Drainage of Peritoneal Cavity, Percutaneous Approach (ICD-10-PCS; 2019-08-23)
DX: K42.0 Umbilical hernia with obstruction, without gangrene (principal); N17.0 Acute kidney failure with tubular necrosis; E87.1 Hypo-osmolality and hyponatremia; D68.9 Coagulation defect, unspecified; R18.8 Other ascites; I10 Essential (primary) hypertension; I27.24 Chronic thromboembolic pulmonary hypertension; K72.90 Hepatic failure, unspecified without coma; I48.91 Unspecified atrial fibrillation; Z82.41 Family history of sudden cardiac death; Z86.711 Personal history of pulmonary embolism; Z88.1 Allergy status to other antibiotic agents; Z79.899 Other long term (current) drug therapy
CPT/HCPCS: 36415; 36600; 49083; 71045; 74177; 80048; 80053; 82803; 83605; 83735; 85018; 85025; 85610; 85730; 86885; 86900; 86901; 87081; 93005; 93971; 93975; 94640; 94660; 94760; 96365; 96372; 96375; 97116; 97161; 97530; 99285; A4215; A4618; A7000; C9132; G0378; J1650; J1940; J1953; J2001; J2250; J2270; J3010; J3490; J7120; P9059; Q9967

== ENCOUNTER 2019-10-19 04:34 | Inpatient (IN) | payer MEDICARE, BC ==
[~2019-10-19] VITALS: Ht 172.7 cm; Wt 63.5 kg
[2019-10-19] VITALS (8 sets, daily range): BP systolic 96–123; BP diastolic 58–75
[~2019-10-19 04:34] MED LIST changes: -O2; +OXYGEN NASALCANN
--- NOTE | 2019-10-19 06:04 | NUR ---
UPDATED THAT PT REPORTS TO ME HIS O2 SATS "ARE ALWAYS IN THE LOW 80'S" AND AGREED WITH THIS. PT REPROTS THIS IS D/T HIS PULMONARY HTN AND THAT HE IS REGULARLY SEEN BY DR. COMBS AND DR. SPEAR. CURRENTLY 86% ON 6 LITERS.
[2019-10-19 06:09] LABS: BASOPHILS # (AUTO) 0.1 X10'3 (0-0.2); BASOPHILS % (AUTO) 0.8 % (0-1); EOSINOPHILS % (AUTO) 0.1 % (0-6); HEMATOCRIT 42.8 % (42.0-52.0); HEMOGLOBIN 13.8 g/dl (14.0-17.9); LYMPHOCYTES % (AUTO) 11.8 % (21-51); MEAN CORPUSCULAR HEMOGLOBIN 26.1 PG (27.0-31.0); MEAN CORPUSCULAR HGB CONC 32.3 g/dL (33.0-36.5); MEAN CORPUSCULAR VOLUME 80.8 FL (78-98); MEAN PLATELET VOLUME 6.8 FL (7.4-10.4); MONOCYTES # (AUTO) 0.6 X10'3 (0-0.9); MONOCYTES % (AUTO) 7.3 % (2-12); NEUTROPHILS # (AUTO) 7.1 X10'3 (1.8-7.7); PLATELET COUNT 255 X10'3 (140-440); RED BLOOD COUNT 5.29 X10'6 (4.70-6.10); WHITE BLOOD COUNT 8.8 X10'3 (4.5-11.0)
[2019-10-19 06:21] LABS: PARTIAL THROMBOPLASTIN TIME 34 SECONDS (22-32)
[2019-10-19 06:27] LABS: ALANINE AMINOTRANSFERASE 13 U/L (12-78); ALBUMIN/GLOBULIN RATIO 0.8 (1.1-1.5); ALKALINE PHOSPHATASE 139 IU/L (46-116); ANION GAP 14 (8-16); ASPARTATE AMINO TRANSFERASE 23 U/L (10-37); BILIRUBIN,TOTAL 1.5 MG/DL (0.1-1.0); BLOOD UREA NITROGEN 25 MG/DL (7-18); BUN/CREATININE RATIO 24.8 (5.4-32.0); CALCIUM 8.9 MG/DL (8.5-10.1); CHLORIDE 99 MMOL/L (99-107); CREATININE 1.01 MG/DL (0.60-1.10); GLUCOSE 101 MG/DL (70-104); POTASSIUM 4.3 MMOL/L (3.5-5.1); SODIUM 137 MMOL/L (135-145); TOTAL CARBON DIOXIDE 24.4 MMOL/L (24-32); TOTAL PROTEIN 6.7 G/DL (6.4-8.2); eGFR 73 ML/MIN
[2019-10-19 07:09] LABS: ANISOCYTOSIS 2+; ELLIPTOCYTES FEW; PLATELET ESTIMATE NORMAL; TARGET CELLS FEW
[2019-10-19 07:10] LABS: SCHISTOCYTES FEW
[2019-10-19 07:56] LABS: ABG BASE EXCESS -0.5 mmol/L (-2.0-3.0); ABG HCO3 22.1 mmol/L (22.0-26.0); ABG OXYGEN SATURATION 81.8 % (95-98); ABG PCO2 (T) 31.2 mmHg (35.0-45.0); ABG PH (T) 7.469 (7.350-7.450); ABG PO2 (T) 44.9 mmHg (83-108); ALLEN'S TEST POSITIVE; FCOHb 1.2 % (0.5-1.5); FMetHb 0.2 % (0.3-1.12); FO2Hb 80.7 % (94-100); TOTAL HEMOGLOBIN 14.8 G/dl (14.0-17.9)
[2019-10-19] MEDS ORDERED: potassium Cl 20 mEq SR tablet PO PRN ×2 (09:15)
[2019-10-19] MEDS ORDERED: magnesium 2GM in 50ml NS 50 ML IV PRN (09:15)
[2019-10-19] MEDS ORDERED: ipratropium/albuterol 3ml nebule NEB PRN (09:15)
[2019-10-19] MEDS ORDERED: ondansetron/PF 4mg/2ml inj IV PRN (09:15)
[2019-10-19] MEDS ORDERED: magnesium 4gm in 100ml NS 100 ML IV PRN (09:15)
[2019-10-19] MEDS ORDERED: potassium CL 10mEq/100ml bag 100 ML IV PRN ×2 (09:15)
[2019-10-19] MEDS ORDERED: mag hydrox/Alum hydrox/simeth 30ml oral suspension PO PRN (09:15)
[2019-10-19] MEDS ORDERED: acetaminophen 325mg tablet PO PRN (09:15)
--- NOTE | 2019-10-19 13:30 | NUR ---
Spoke to Tanisha RT r/t patient's low O2, states patient has refused any advanced interventions to control the O2 level. Refused tx from R.T. at this time.
[2019-10-19] MEDS ORDERED: FLO0.4C PO (13:44)
[2019-10-19] MEDS ORDERED: ALPR0.5T8 PO (13:44)
[2019-10-19] MEDS ORDERED: OXYC-150 PO (13:50)
--- NOTE | 2019-10-19 15:08 | NUR ---
Paged Dr. Zaragoza re: patient's O2 status with rising O2 needs, received orders for high flow O2 and to maintain O2 > 86%. Called RT states that patient has been refusing the [facility] high flow d/t the size of machine and tubing,patient currently receiving a paracentesis and will hopefully see postive monitor changes in O2 saturation.
--- NOTE | 2019-10-19 15:10 | NUR ---
Spoke to RT to make aware of MD's orders for high flow. RT states she will try to place patient on [facility] high flow but has refused since today's admission so far. Will try after paracentesis is complete. Until then will try to maintain O2 status above 86%
[2019-10-19] MEDS ORDERED: albumin (human) 25% 100 ML IV solution IV ONE (15:25)
[2019-10-19] MEDS ORDERED: DOCU-148 PO (17:01)
[2019-10-19] MEDS ORDERED: OXYGEN NASALCANN SCH (17:20)
[2019-10-19] MEDS ORDERED: oxyCODONE/APAP 10/325mg tablet PO PRN (17:20)
[2019-10-19] MEDS ORDERED: [UNRECOGNIZED DRUG - OTHER] NASALCANN SCH (17:20)
--- NOTE | 2019-10-19 18:00 | NUR ---
Patient in room MED 307. I have received report from Bri KYLE and had the opportunity to ask questions and assume patient care.
[2019-10-19] MEDS: docusate sod 100mg capsule PO SCH ×2 (20:00→20:42)
[2019-10-19] MEDS: furosemide 20MG tablet PO SCH (20:00)
[2019-10-19] MEDS: K and/or MAG REPLACEMENT MC SCH (20:00)
[2019-10-19] MEDS: spironolactone 25 MG tablet PO SCH (20:00)
[2019-10-19] MEDS: sildenafil citrate 20mg tablet PO SCH (20:44)
[2019-10-19] MEDS ORDERED: warfarin 1mg tablet PO SCH (21:00)
[2019-10-20 02:00] VITALS: BP 96/57
[2019-10-20 03:24] LABS: BASOPHILS # (AUTO) 0.1 X10'3 (0-0.2); BASOPHILS % (AUTO) 0.7 % (0-1); EOSINOPHILS % (AUTO) 0.2 % (0-6); HEMATOCRIT 42.4 % (42.0-52.0); HEMOGLOBIN 13.5 g/dl (14.0-17.9); LYMPHOCYTES # (AUTO) 1.4 X10'3 (1.1-4.8); MEAN CORPUSCULAR HEMOGLOBIN 25.6 PG (27.0-31.0); MEAN CORPUSCULAR HGB CONC 31.8 g/dL (33.0-36.5); MEAN CORPUSCULAR VOLUME 80.6 FL (78-98); MONOCYTES # (AUTO) 0.7 X10'3 (0-0.9); NEUTROPHILS # (AUTO) 6.8 X10'3 (1.8-7.7); NEUTROPHILS % (AUTO) 75.1 % (42-75); PLATELET COUNT 220 X10'3 (140-440); RED BLOOD COUNT 5.26 X10'6 (4.70-6.10); RED CELL DISTRIBUTION WIDTH 18.8 % (11.5-14.5)
[2019-10-20 03:40] LABS: ALANINE AMINOTRANSFERASE 11 U/L (12-78); ALBUMIN 2.8 G/DL (3.4-5.0); ALKALINE PHOSPHATASE 105 IU/L (46-116); ANION GAP 9 (8-16); ASPARTATE AMINO TRANSFERASE 18 U/L (10-37); BILIRUBIN,TOTAL 1.4 MG/DL (0.1-1.0); BLOOD UREA NITROGEN 25 MG/DL (7-18); BUN/CREATININE RATIO 29.4 (5.4-32.0); CALCIUM 8.3 MG/DL (8.5-10.1); CHLORIDE 102 MMOL/L (99-107); CREATININE 0.85 MG/DL (0.60-1.10); GLUCOSE 73 MG/DL (70-104); MAGNESIUM 1.8 MG/DL (1.5-2.4); POTASSIUM 4.4 MMOL/L (3.5-5.1); SODIUM 136 MMOL/L (135-145); TOTAL CARBON DIOXIDE 25.5 MMOL/L (24-32); TOTAL PROTEIN 5.6 G/DL (6.4-8.2); eGFR 90 ML/MIN
--- NOTE | 2019-10-20 06:02 | NUR ---
Problems reprioritized. Patient report given, questions answered & plan of care reviewed with Bri KYLE.
--- NOTE | 2019-10-20 06:16 | NUR ---
Patient in room MED 307. I have received report from Sarah KYLE and had the opportunity to ask questions and assume patient care.
[2019-10-20 06:30] VITALS: BP 125/73
--- NOTE | 2019-10-20 07:42 | NUR ---
Received call from Mila re: placing patient on N/C since saturating in mid-high 90's. Will change to N/C and monitor O2 saturation.
[2019-10-20] MEDS: K and/or MAG REPLACEMENT MC SCH (08:00)
[2019-10-20] MEDS: docusate sod 100mg capsule PO SCH ×2 (08:00)
[2019-10-20] MEDS: furosemide 20MG tablet PO SCH (08:44)
[2019-10-20] MEDS: sildenafil citrate 20mg tablet PO SCH (08:44)
[2019-10-20] MEDS: spironolactone 25 MG tablet PO SCH (08:44)
--- NOTE | 2019-10-20 11:45 | NUR ---
Escorted patient out to private vehicle via W/C and 4 L N/C O2 without event. Eager to go home. Sent belongings with . IV removed and tolerated well, tele dc'd. VSS. Discussed discharge instructions with patient, verbalizes understanding, is aware of orders to follow up with Dr. Lugo. No new meds and is to continue home meds.
--- NOTE | 2019-10-24 11:11 | NUR ---
Case Management DC follow up: spoke/pt via telephone: reports feeling better, no uncomfortable swelling. Denies cp, emergent/acute general pain, sob, resp distress, NV, dizziness. remains afebrile. states, "I don't like hospitals". verbalizes understanding of s/s that would warrant 9-11/ER evaluation. verbalizes understanding of meds, why prescribed, taking as ordered, no ase noted. Pt acknowledged DC orders to follow up w/PCP & Dr Lugo in 1-2 weeks. pt was under impression he was to follow up when he felt the need. needs met, questions answered at DC, no further questions at this time.
== END 2019-10-20 11:45 | disposition home or self-care (01) | DRG 189 ==
LOC: ER 04:34 → ED HOLD 09:18 → MED 3N 13:00
PROVIDERS: ADMIT Family Medicine; ATTEND Family Medicine
PROC: 0W9G3ZZ Drainage of Peritoneal Cavity, Percutaneous Approach (ICD-10-PCS; principal; 2019-10-19)
DX: J96.20 Acute and chronic respiratory failure, unspecified whether with hypoxia or hypercapnia (principal); R18.8 Other ascites; E87.3 Alkalosis; E44.0 Moderate protein-calorie malnutrition; I10 Essential (primary) hypertension; I27.24 Chronic thromboembolic pulmonary hypertension; I48.91 Unspecified atrial fibrillation; Z79.01 Long term (current) use of anticoagulants; Z82.3 Family history of stroke; Z82.41 Family history of sudden cardiac death; Z95.0 Presence of cardiac pacemaker; Z88.8 Allergy status to other drugs, medicaments and biological substances; Z79.899 Other long term (current) drug therapy; Z68.21 Body mass index [BMI] 21.0-21.9, adult
CPT/HCPCS: 36415; 36600; 49083; 71045; 80053; 82803; 83735; 83880; 84484; 85018; 85025; 85610; 85730; 87081; 93005; 94760; 99285; P9047

== ENCOUNTER 2019-11-12 08:05 | Emergency (ER) | payer MEDICARE, BC ==
[~2019-11-12] VITALS: Ht 172.7 cm; Wt 59.0 kg
[~2019-11-12 08:05] MED LIST changes: -CHOL10002 PO; +DOCU-148 PO; -OMEG1CAP2 PO; +OXYC-150 PO
[2019-11-12 09:29] LABS: BASOPHILS # (AUTO) 0.1 X10'3 (0-0.2); BASOPHILS % (AUTO) 1.1 % (0-1); EOSINOPHILS % (AUTO) 0.7 % (0-6); HEMATOCRIT 47.3 % (42.0-52.0); HEMOGLOBIN 14.9 g/dl (14.0-17.9); LYMPHOCYTES # (AUTO) 1.5 X10'3 (1.1-4.8); LYMPHOCYTES % (AUTO) 21.5 % (21-51); MEAN CORPUSCULAR HEMOGLOBIN 25.2 PG (27.0-31.0); MEAN CORPUSCULAR HGB CONC 31.6 g/dL (33.0-36.5); MEAN CORPUSCULAR VOLUME 79.6 FL (78-98); MEAN PLATELET VOLUME 6.7 FL (7.4-10.4); MONOCYTES # (AUTO) 0.5 X10'3 (0-0.9); MONOCYTES % (AUTO) 6.9 % (2-12); NEUTROPHILS # (AUTO) 4.8 X10'3 (1.8-7.7); NEUTROPHILS % (AUTO) 69.8 % (42-75); PLATELET COUNT 168 X10'3 (140-440); RED BLOOD COUNT 5.94 X10'6 (4.70-6.10); RED CELL DISTRIBUTION WIDTH 19.4 % (11.5-14.5); WHITE BLOOD COUNT 6.9 X10'3 (4.5-11.0)
[2019-11-12 09:40] LABS: PARTIAL THROMBOPLASTIN TIME 30 SECONDS (22-32)
[2019-11-12 09:43] LABS: ALANINE AMINOTRANSFERASE 10 U/L (12-78); ALBUMIN 3.1 G/DL (3.4-5.0); ALBUMIN/GLOBULIN RATIO 0.9 (1.1-1.5); ALKALINE PHOSPHATASE 138 IU/L (46-116); ANION GAP 8 (8-16); ASPARTATE AMINO TRANSFERASE 26 U/L (10-37); BILIRUBIN,TOTAL 1.1 MG/DL (0.1-1.0); BLOOD UREA NITROGEN 22 MG/DL (7-18); BUN/CREATININE RATIO 18.6 (5.4-32.0); CALCIUM 8.7 MG/DL (8.5-10.1); CHLORIDE 99 MMOL/L (99-107); CREATININE 1.18 MG/DL (0.60-1.10); GLUCOSE 105 MG/DL (70-104); POTASSIUM 4.4 MMOL/L (3.5-5.1); SODIUM 135 MMOL/L (135-145); TOTAL CARBON DIOXIDE 28.1 MMOL/L (24-32); TOTAL PROTEIN 6.7 G/DL (6.4-8.2); eGFR 61 ML/MIN
[2019-11-12 10:17] LABS: PLATELET ESTIMATE NORMAL
[2019-11-12 10:18] LABS: ANISOCYTOSIS 2+; POLYCHROMASIA FEW
[2019-11-12 10:19] LABS: ELLIPTOCYTES FEW; MICROCYTOSIS 1+; TARGET CELLS FEW
[2019-11-12 12:49] VITALS: BP 94/61
--- NOTE | 2019-11-12 12:51 | NUR ---
Called and spoke with Leticia, who stated that she will be on her way shortly and will bring patients oxygen tank with her.
[2019-11-12 12:58] LABS: CLARITY,URINE CLEAR (Clear); COLOR,URINE YELLOW (Yellow); GLUCOSE, URINE NEGATIVE (Neg); KETONES,URINE NEGATIVE (Neg); LEUKOCYTE ESTERASE ,URINE NEGATIVE (Neg); NITRITES, URINE NEGATIVE (Neg); OCCULT BLOOD,URINE NEGATIVE (Neg); PH,URINE 6.5 (4.8-8.0); PROTEIN,URINE TRACE mg/dl (Neg); UROBILINOGEN,URINE 0.2 E.U/dL (0.2-1.0)
[2019-11-12 13:01] LABS: UA COLLECTION TYPE STRAIGHT CATH
[2019-11-12 13:07] LABS: BACTERIA,URINE NONE SEEN /HPF (Neg); MUCUS STRANDS NONE SEEN /LPF (Neg); RBC,URINE 0-2 /HPF (0-2); SQUAMOUS EPITHELIAL CELL,UR NONE SEEN /LPF (FEW); WBC,URINE 0-4 /HPF (0-4)
== END 2019-11-12 13:45 | disposition home or self-care (01) ==
LOC: ER 08:06
DX: R53.1 Weakness (principal); R41.82 Altered mental status, unspecified; I48.91 Unspecified atrial fibrillation; I10 Essential (primary) hypertension; I27.20 Pulmonary hypertension, unspecified; Z98.890 Other specified postprocedural states; Z88.8 Allergy status to other drugs, medicaments and biological substances; Z79.01 Long term (current) use of anticoagulants; Z79.899 Other long term (current) drug therapy; Z88.1 Allergy status to other antibiotic agents; Z86.73 Personal history of transient ischemic attack (TIA), and cerebral infarction without residual deficits
CPT/HCPCS: 36415; 70450; 71045; 80053; 81001; 82140; 83880; 85025; 85610; 85730; 93005; 99285